=== PATIENT | male | born 1935 | race Caucasian/White ===

== ENCOUNTER 2018-06-20 18:48 | Inpatient (IN) ==
[2018-06-20] MEDS ORDERED: SODIUM CHLORIDE 0.9% 500 ML IV SCH (19:15)
[2018-06-20 19:28] LABS: Basophils # (auto) 0.01 K/uL (0-0.2); Basophils % (auto) 0.1 %; Eosinophils # (auto) 0.01 K/uL (0-0.5); Eosinophils % (auto) 0.1 %; Hemoglobin 10.2 g/dL (14.0-18.0); Immature Granulocytes # (auto) 0.03 K/uL (0.00-0.02); Immature Granulocytes % (auto) 0.3 %; Lymphocytes % (auto) 11.1 %; Mean Platelet Volume 9.6 fL (7.4-10.4); Monocytes # (auto) 0.54 K/uL (0.11-0.59); Monocytes % (auto) 5.5 %; Neutrophils # (auto) 8.21 K/uL (1.4-6.5); Neutrophils % (auto) 82.9 %; Platelet Count 257 K/uL (130-400); RDW Coefficient of Variation 14.3 % (11.5-14.5); Red Blood Count 3.57 M/uL (4.7-6.1)
--- NOTE | 2018-06-20 19:30 | XRay Report ---
SINGLE VIEW CHEST CLINICAL HISTORY: Atypical chest pain. FINDINGS: An AP, portable, upright chest radiograph is obtained. No prior studies are available for c omparison at the time of dictation. The examination is degraded by portable technique and patient rot ation. The patient is status post midline sternotomy. The heart is enlarged and there is atherosclero tic calcification of the thoracic aorta. There is prominence of the pulmonary vasculature. Emphysema and chronic interstitial thickening are noted. There is dense airspace consolidation at the left lung base and a small left pleural effusion. Small calcified granulomas are noted at the right lung base. No pneumothorax is seen. The skeletal structures are osteopenic. The bony thorax is grossly intact. Calcific tendinopathy is noted in the left shoulder. IMPRESSION: 1. There is dense airspace consolidation at the left lung base and a small left pleural effusion. Thi s is typical in appearance for pneumonia/aspiration pneumonitis. Clinical correlation will be require d and radiographic follow-up to resolution is recommended. 2. Emphysema. 3. Cardiac enlargement with prominence of the central pulmonary vessels. Correlate clinically for susannah dence of mild congestive failure. Electronically signed by: Jameel Tanner M.D. 06/20/2018 7:29 PM
[2018-06-20 19:36] LABS: INR 1.2 (0.9-1.1); Prothrombin Time 12.4 Seconds (9.0-12.0)
[2018-06-20 19:43] LABS: Alanine Aminotransferase 72 U/L (12-78); Albumin Level 3.5 gm/dl (3.4-5.0); Aspartate Aminotransferase 86 U/L (15-37); Bilirubin Direct 0.4 mg/dl (0-0.2); Blood Urea Nitrogen 53 mg/dl (7-18); Calcium 9.4 mg/dl (8.5-10.1); Carbon Dioxide 22 mmol/L (21-32); Chloride 91 mmol/L (98-107); Est GFR (African American) 41.4; Est GFR (Non-African American) 35.7; Glucose 210 mg/dl (70-99); Magnesium 2.4 mg/dl (1.8-2.4); Potassium 4.1 mmol/L (3.5-5.1); Sodium 127 mmol/L (136-145)
[2018-06-20 19:47] LABS: Albumin Globulin Ratio 1.2 (0.9-2); Alkaline Phosphatase 101 U/L (45-117); Bilirubin,Total 1.1 mg/dl (0.2-1); NT Pro B Type Natriuretic Pept 18660 pg/ml (0-1800); Phosphorus 2.5 mg/dl (2.5-4.9); Total Protein 6.5 gm/dl (6.4-8.2); Troponin I < 0.015 ng/ml (0-0.045)
[2018-06-20 20:31] LABS: Appearance Urine Clear (Clear); Blood Urine Negative (Negative); Color Urine Yellow; Glucose Urine UA Negative (Negative); Ketones Urine Trace (Negative); Leukocyte Esterase Urine 1+ (Negative); Nitrite Urine Negative (Negative); Protein Urine 2+ (Negative); Urobilinogen Urine Negative (Negative); pH Urine 5.5 (4.5-7.5)
[2018-06-20 20:39] LABS: Bilirubin Urine Negative (Negative); Ictotest Urine Negative (Negative)
[2018-06-20 20:42] LABS: Epithelial Cell Urine >30 /lpf (0-5); RBC Urine 0-4 /hpf (0-4)
[2018-06-20 20:43] LABS: Bacteria Urine 1+ (Negative)
--- NOTE | 2018-06-20 22:12 | History & Physical Report ---
Date of Service June 20, 2018 Assessment & Plan (1) Hypotension: (2) Ischemic cardiomyopathy: -Admit to telemetry -Patient presenting from home with reports of shortness of breath and hypotension -Please refer to HPI for details regarding recent medication adjustments -Suspect hypotension is likely secondary to recent addition of metoprolol in combination with furosemide -BP improved after 500 cc bolus in the ED -will continue very gentle IVF NSS at 50 cc/hour, monitor volume status very closely given severely reduced EF of 15 - 20% -Hold beta-jeff and furosemide -Resting echo -Cardiology consult -Patient appears to be end-stage heart failure, consider discussion for palliative/hospice care (3) DESMOND (acute kidney injury): (4) CKD (chronic kidney disease), stage III: -Creatinine 1.7, noted to be 1.4 on recent outpatient labs -Likely prerenal secondary to diuresis -IVF as above, monitor renal function (5) Hyponatremia: -Likely diuretic induced -Na+ 127, follow after administration of IVF (6) Elevated lipase: -Lipase 1603, ? Clinical significance -No reports of abdominal pain, nausea, vomiting -Recheck with a.m. labs (7) Abnormal chest x-ray: -CXR shows a small left pleural effusion -There is also question of a left basilar consolidation/pneumonia however given no reports of cough or sputum production, afebrile, no leukocytosis, normal procalcitonin, will not treat as pneumonia for now (8) Abnormal urinalysis: -Possible contaminant, patient denies urinary symptoms -Follow urine culture (9) DM type 2 (diabetes mellitus, type 2): -Hgb A1c 6.2 05/2018 -Metformin recently discontinued -Utilize NovoLog per protocol while hospitalized (10) DVT prophylaxis: -SQ heparin History of Present Illness Chief Complaint: Low blood pressure, shortness of breath Primary Care Provider: Jodi Dejesus DO 83-year-old male who presents the ED with low blood pressure and shortness of breath. Patient has history of severe ischemic cardiomyopathy with EF 15 to 20%. Patient has been struggling with acute CHF exacerbations since January 2018. He reports multiple hospitalizations at [facility] for this and also has undergone thoracentesis for recurrent left pleural effusion. Recently, patient established care with Dr. Siegel with [facility] for a second opinion. Previously, patient was prescribed carvedilol, spironolactone, lisinopril, and furosemide however hypotension has limited the use of these medications to the point where patient was only able to tolerate furosemide 40 mg daily. During his recent visit with Dr. Siegel, patient was found to be tachycardic and patient was started on metoprolol succinate 25 mg daily. Patient reports he takes his medication in the morning and shortly after, he reports he feels profoundly weak and short of breath. He says he takes his blood pressure and it is usually low systolically in the 80s. He then takes his furosemide later in the day and has a similar response. Today, patient had the same symptoms however were much worse. He reports he took his blood pressure and it was 68/42. EMS was then called and patient was brought to the ED for further evaluation. Patient has noted increasing lower extremity edema over the past 1 week however reports his weight has been stable. He denies orthopnea. No chest pain or palpitations. He has had episodes of lightheadedness and dizziness but denies any syncopal events. No abdominal pain, nausea, vomiting, diarrhea. He denies any fevers or chills. No cough or sputum production. He denies any urinary symptoms. In the ED, patient's initial BP was 77/47. He received NSS 500 cc bolus with marked improvement in BP and symptoms. Labs show a stable anemia with hemoglobin 10.2, Na+ 127, creatinine 1.7, proBNP 18,660, lipase 1603. CXR shows small left pleural effusion. Allergies Allergy/AdvReac Type Severity Reaction Status Date / Time No Known Allergies Allergy Verified 06/20/18 20:54 Home Medications Home Medications Medication Instructions Recorded Confirmed Type C,E,zinc,copper [id number] 1 cap PO QAM 06/20/18 06/20/18 History [Ocuvite Adult 50 Plus] Lactobac comb 6-[id number] 1 cap PO DAILY 06/20/18 06/20/18 History [Probiotic and Acidophilus] aspirin 81 mg PO QAM 06/20/18 06/20/18 History furosemide 40 mg PO DAILY 06/20/18 06/20/18 History magnesium oxide 400 mg PO QAM 06/20/18 06/20/18 History metoprolol succinate 25 mg PO QAM 06/20/18 06/20/18 History multivitamin 1 tab PO QAM 06/20/18 06/20/18 History omeprazole 20 mg PO QAM 06/20/18 06/20/18 History trazodone 50 mg PO HS 06/20/18 06/20/18 History Past Med/Surg History Medical History Prostate cancer (Chronic) LBBB (left bundle branch block) (Chronic) CAD (coronary artery disease) (Chronic) 1997-CABG X3 2000, 2003 -cardiac stent placement, further details unknown Ischemic cardiomyopathy (Chronic) CKD (chronic kidney disease), stage III (Chronic) DM type 2 (diabetes mellitus, type 2) (Chronic) CHF (congestive heart failure) (Chronic) Hypotension (Chronic) Surgical History S/P CABG x 3 (Chronic) History of cataract surgery (Chronic) Hx of cholecystectomy (Chronic) History of thoracentesis (Chronic) Family History Unknown No significant family history Noncontributory secondary to patient's advanced age Social History Preferred Language: Somali Communication Ability: Effective Dish Up Person Required: No Beliefs That Will Affect Care: None Current Living Situation: Spouse Other Information That Helps Us Care for You: No Feels Safe at Home: Yes Safety Concerns: Feels Safe At This Time Smoking Status: Never smoker Do You Dip or Chew Tobacco: No Second Hand Exposure: No Tobacco Cessation Education Requested by Patient: No Hx Alcohol Use: No Hx Substance Use: No Review of Systems Review of Systems: ROS per HPI, all other systems reviewed and negative Physical Exam Constitutional: + cachectic; no acute distress Vitals as above Eyes: PERRL, conjunctivae normal, anicteric sclerae ENMT: external ear and nose normal, oropharynx normal Respiratory: normal respiratory effort; no respiratory distress Auscultation: + crackles (Bilateral bases) Cardiovascular: Rate/Rhythm: regular rate and regular rhythm Vessels: normal peripheral pulses Extremities: + edema (+2 pitting BLE) Gastrointestinal (Abdomen): normal bowel sounds, soft, nontender, no hepatosplenomegaly Musculoskeletal: no cyanosis or clubbing, extremities motor strength 5/5 Skin: no rashes, warm and dry Neurologic: PERRL, EOMI, accommodation nl, no face palsy, no dysarthria Psychiatric: A+Ox3, euthymic affect Results & Data Vital Signs (Past 12 Hours) Vital Signs Temp Pulse Resp BP Pulse Ox 06/20/18 21:31 89 20 101/56 L 100 06/20/18 21:16 92 H 24 101/55 L 99 06/20/18 21:01 92 H 17 96/63 L 97 06/20/18 20:46 89 28 H 97/56 L 100 06/20/18 20:31 92 H 22 96/58 L 98 06/20/18 20:16 92 H 25 H 88/54 L 99 06/20/18 20:01 91 H 30 H 83/48 L 99 06/20/18 19:46 90 22 83/51 L 99 06/20/18 19:31 87 23 80/51 L 100 06/20/18 19:25 91 H 99 06/20/18 19:18 87 38 H 82/42 L 100 06/20/18 19:01 95 H 21 81/53 L 98 06/20/18 18:56 36.7 C 97 H 27 H 77/47 L 100 06/20/18 18:55 93 H 24 77/47 L 99 Laboratory Results Laboratory Last Values WBC 9.90 K/uL (4.8-10.8) 06/20/18 19:12 RBC 3.57 M/uL (4.7-6.1) L 06/20/18 19:12 Hgb 10.2 g/dL (14.0-18.0) L 06/20/18 19:12 Hct 30.0 % (42-52) L 06/20/18 19:12 MCV 84.0 fL (80-100) 06/20/18 19:12 MCH 28.6 pg (25-34) 06/20/18 19:12 MCHC 34.0 g/dL (32-36) 06/20/18 19:12 RDW Std Deviation 44.0 fL (36.4-46.3) 06/20/18 19:12 RDW Coeff of Roxanne 14.3 % (11.5-14.5) 06/20/18 19:12 Plt Count 257 K/uL (130-400) 06/20/18 19:12 MPV 9.6 fL (7.4-10.4) 06/20/18 19:12 Immature Gran % (Auto) 0.3 % 06/20/18 19:12 Neut % (Auto) 82.9 % 06/20/18 19:12 Lymph % (Auto) 11.1 % 06/20/18 19:12 Sherman % (Auto) 5.5 % 06/20/18 19:12 Eos % (Auto) 0.1 % 06/20/18 19:12 Baso % (Auto) 0.1 % 06/20/18 19:12 Immature Gran # (Auto) 0.03 K/uL (0.00-0.02) H 06/20/18 19:12 Neut # (Auto) 8.21 K/uL (1.4-6.5) H 06/20/18 19:12 Lymph # (Auto) 1.10 K/uL (1.2-3.4) L 06/20/18 19:12 Sherman # (Auto) 0.54 K/uL (0.11-0.59) 06/20/18 19:12 Eos # (Auto) 0.01 K/uL (0-0.5) 06/20/18 19:12 Baso # (Auto) 0.01 K/uL (0-0.2) 06/20/18 19:12 PT 12.4 Seconds (9.0-12.0) H 06/20/18 19:12 INR 1.2 (0.9-1.1) H 06/20/18 19:12 Sodium 127 mmol/L (136-145) L 06/20/18 19:12 Potassium 4.1 mmol/L (3.5-5.1) 06/20/18 19:12 Chloride 91 mmol/L (98-107) L 06/20/18 19:12 Carbon Dioxide 22 mmol/L (21-32) 06/20/18 19:12 Anion Gap 14.0 (3-11) H 06/20/18 19:12 BUN 53 mg/dl (7-18) H 06/20/18 19:12 Creatinine 1.71 mg/dl (0.6-1.4) H 06/20/18 19:12 Est Cr Clr Drug Dosing 27.0 ml/min 06/20/18 19:12 Est GFR ( Amer) 41.4 06/20/18 19:12 Est GFR (Non-Af Amer) 35.7 06/20/18 19:12 BUN/Creatinine Ratio 31.0 (10-20) H 06/20/18 19:12 Glucose 210 mg/dl (70-99) H 06/20/18 19:12 Osmolality 289 mOsm/kg (280-300) 06/20/18 19:12 Calcium 9.4 mg/dl (8.5-10.1) 06/20/18 19:12 Phosphorus 2.5 mg/dl (2.5-4.9) 06/20/18 19:12 Magnesium 2.4 mg/dl (1.8-2.4) 06/20/18 19:12 Total Bilirubin 1.1 mg/dl (0.2-1) H 06/20/18 19:12 Direct Bilirubin 0.4 mg/dl (0-0.2) H 06/20/18 19:12 AST 86 U/L (15-37) H 06/20/18 19:12 ALT 72 U/L (12-78) 06/20/18 19:12 Alkaline Phosphatase 101 U/L (45-117) 06/20/18 19:12 Troponin I < 0.015 ng/ml (0-0.045) 06/20/18 19:12 NT-Pro-B Natriuret Pep 94970 pg/ml (0-1800) H 06/20/18 19:12 Total Protein 6.5 gm/dl (6.4-8.2) 06/20/18 19:12 Albumin 3.5 gm/dl (3.4-5.0) 06/20/18 19:12 Globulin 3.0 gm/dl (2.5-4.0) 06/20/18 19:12 Albumin/Globulin Ratio 1.2 (0.9-2) 06/20/18 19:12 Lipase 1603 U/L (73-393) H 06/20/18 19:12 Procalcitonin 0.11 ng/ml (0-0.5) 06/20/18 19:12 Urine Color Yellow 06/20/18 20:24 Urine Appearance Clear (Clear) 06/20/18 20:24 Urine pH 5.5 (4.5-7.5) 06/20/18 20:24 Ur Specific [place] 1.020 (1.000-1.030) 06/20/18 20:24 Urine Protein 2+ (Negative) H 06/20/18 20:24 Urine Glucose (UA) Negative (Negative) 06/20/18 20:24 Urine Ketones Trace (Negative) H 06/20/18 20:24 Urine Blood Negative (Negative) 06/20/18 20:24 Urine Nitrite Negative (Negative) 06/20/18 20:24 Urine Bilirubin Negative (Negative) 06/20/18 20:24 Urine Urobilinogen Negative (Negative) 06/20/18 20:24 Ur Leukocyte Esterase 1+ (Negative) H 06/20/18 20:24 Urine RBC 0-4 /hpf (0-4) 06/20/18 20:24 Urine WBC 10-30 /hpf (0-5) H 06/20/18 20:24 Ur Epithelial Cells >30 /lpf (0-5) H 06/20/18 20:24 Urine Bacteria 1+ (Negative) H 06/20/18 20:24 Hyaline Casts 10-30 /lpf (0-5) H 06/20/18 20:24 Urine Osmolality 399 mOsm/kg (500-800) L 06/20/18 20:24 Diagnostic Findings CXR IMPRESSION: 1. There is dense airspace consolidation at the left lung base and a small left pleural effusion. This is typical in appearance for pneumonia/aspiration pneumonitis. Clinical correlation will be required and radiographic follow-up to resolution is recommended. 2. Emphysema. 3. Cardiac enlargement with prominence of the central pulmonary vessels. Correlate clinically for evidence of mild congestive failure. Code Status & VTE Plan Code Status Patient reports he is unsure of his wishes at this time and would like to discuss this with his therefore patient will be placed to full code for now. VTE Prophylaxis Plan VTE Prophylaxis will be ordered: Yes Supervising Physician Co-Signing Physician Notes Care coordinated with WARREN Luther. Agree with above note. Patient seen and examined. Please refer to her notes for full details. Vital signs reviewed. Physical exam: General exam: Alert and oriented. Not in acute distress.Cachectic CVS: S1 and S2 heard, regular rate and rhythm, no murmurs. RS: Clear to auscultation, no wheezing or crackles. ABD: Soft, bowel sounds present, nontender, no distention. CLEANER FURNITURE: Nonfocal. EXT: No edema, no erythema. Labs: Reviewed. Assessment and plan: Hypotension sob mostly from hypotension received fluid bolus in Er and BP improved Feeling better after BP improved will follow echo monitor in tele cardio consult in am Chronic systolic CHF ef 15% holding lasix and toprol xl await cardio input Other diagnosis and plan of care as per WARREN Luther. Franky herron MD.
[2018-06-20] MEDS ORDERED: SODIUM CHLORIDE 0.9% 1000ML 1,000 ML IV SCH (22:34)
[2018-06-20] MEDS ORDERED: ACETAMINOPHEN 325 MG TAB PO PRN (22:34)
[2018-06-20] MEDS ORDERED: CARBOHYDRATES FOR HYPOGLYCEMIA PO PRN (22:37)
[2018-06-20] MEDS ORDERED: GLUCOSE 10 TABS/TUBE PO PRN (22:37)
[2018-06-20] MEDS ORDERED: GLUCAGON FOR INJ 1 MG VIAL SQ PRN (22:37)
[2018-06-20] MEDS ORDERED: GLUCOSE 40% GEL 15 GM TUBE PO PRN (22:37)
[2018-06-20] MEDS ORDERED: DEXTROSE 50% 50 ML SYRINGE IV PRN (22:37)
[2018-06-20] MEDS: TRAZODONE HCL 50 MG TAB PO SCH (23:11)
--- NOTE | 2018-06-21 02:11 | Emergency Department Note ---
Entered by Yesica Borges acting as a scribe for Leonardo Hernandez MD History of Present Illness General Chief complaint: Respiratory Problems Stated complaint: SOB, EDEMA Time Seen by Provider: 06/20/18 18:59 Source: patient History of Present Illness Onset (ago): week(s) (couple) Location: chest (respiratory issues) Pain Consistency: + other (worsening) Exacerbated By: + medication Associated symptoms: + denies other symptoms (dizziness, diarrhea), + shortness of breath, + weakness and + other (low blood pressure, abdominal pain, leg swelling); no cough, no fever/chills and no nausea/vomiting The patient is a 83 year old M who presents to the Emergency Room with complaints of worsening respiratory issues starting a couple of weeks ago. The patient states that for the past couple of weeks he has been experiencing shortness of breath. He adds that he has been having issues with his home oxygen. He notes that he is currently taking Lasiks and metoprolol. He states that due to these medications his blood pressure has been low. He adds that today his blood pressure was 68/45. He states that he is currently experiencing weakness, abdominal pain, and leg swelling. He denies experiencing dizziness, fever, chills, nausea, coughing, vomiting, and diarrhea. He states that he has a history of CHF. He notes that the last time he saw his hide examiner, Dr. Siegel, was two weeks ago. Home Medications Home Medications Medication Instructions Recorded Confirmed Type C,E,zinc,copper [id number] 1 cap PO QAM 06/20/18 06/20/18 History [Ocuvite Adult 50 Plus] Lactobac comb [id number] 1 cap PO DAILY 06/20/18 06/20/18 History [Probiotic and Acidophilus] aspirin 81 mg PO QAM 06/20/18 06/20/18 History furosemide 40 mg PO DAILY 06/20/18 06/20/18 History magnesium oxide 400 mg PO QAM 06/20/18 06/20/18 History metoprolol succinate 25 mg PO QAM 06/20/18 06/20/18 History multivitamin 1 tab PO QAM 06/20/18 06/20/18 History omeprazole 20 mg PO QAM 06/20/18 06/20/18 History trazodone 50 mg PO HS 06/20/18 06/20/18 History Allergies Allergy/AdvReac Type Severity Reaction Status Date / Time No Known Allergies Allergy Verified 06/20/18 20:54 Past Med/Surg History Medical History Prostate cancer (Chronic) LBBB (left bundle branch block) (Chronic) CAD (coronary artery disease) (Chronic) 1997-CABG X3 2000, 2003 -cardiac stent placement, further details unknown Ischemic cardiomyopathy (Chronic) CKD (chronic kidney disease), stage III (Chronic) DM type 2 (diabetes mellitus, type 2) (Chronic) CHF (congestive heart failure) (Chronic) Hypotension (Chronic) Surgical History S/P CABG x 3 (Chronic) History of cataract surgery (Chronic) Hx of cholecystectomy (Chronic) History of thoracentesis (Chronic) Family History Unknown No significant family history Noncontributory secondary to patient's advanced age Social History Preferred Language: Portuguese Communication Ability: Effective Solo Musician Required: No Beliefs That Will Affect Care: None Current Living Situation: Spouse Other Information That Helps Us Care for You: No Feels Safe at Home: Yes Safety Concerns: Feels Safe At This Time Smoking Status: Never smoker Do You Dip or Chew Tobacco: No Second Hand Exposure: No Tobacco Cessation Education Requested by Patient: No Hx Alcohol Use: No Hx Substance Use: No Review of Systems See HPI for pertinent positives & negatives. and A total of 10 systems reviewed and were otherwise negative Physical Exam Vital Signs Vital Signs - 24 hr 06/20/18 18:55 06/20/18 18:56 06/20/18 19:01 Temperature 36.7 C Temperature Source Oral Sepsis Recent Fever Within 48 Hours No Sepsis New/Unexplained Change in Mental Status No Sepsis Action Taken by Nursing No Action Required Pulse Rate 93 H 97 H 95 H Pulse Rate [Apical] Pulse Rate from SpO2 Sensor 96 H 95 H Pulse Rhythm Regular Pulse Strength Normal Respiratory Rate 24 27 H 21 Respiratory Effort / Characteristics Respiratory Depth Respiratory Pattern Blood Pressure 77/47 L 77/47 L 81/53 L Blood Pressure [Right Arm] Blood Pressure Mean 57 57 62 Blood Pressure Mean [Right Arm] Blood Pressure Position Sitting Blood Pressure Position [Right Arm] Pulse Oximetry 99 100 98 Oxygen Delivery Method Room Air Room Air Room Air 06/20/18 19:18 06/20/18 19:25 06/20/18 19:31 Temperature Temperature Source Sepsis Recent Fever Within 48 Hours Sepsis New/Unexplained Change in Mental Status Sepsis Action Taken by Nursing Pulse Rate 87 91 H 87 Pulse Rate [Apical] Pulse Rate from SpO2 Sensor 87 88 Pulse Rhythm Pulse Strength Respiratory Rate 38 H 23 Respiratory Effort / Characteristics Respiratory Depth Respiratory Pattern Blood Pressure 82/42 L 80/51 L Blood Pressure [Right Arm] Blood Pressure Mean 55 60 Blood Pressure Mean [Right Arm] Blood Pressure Position Blood Pressure Position [Right Arm] Pulse Oximetry 100 99 100 Oxygen Delivery Method Room Air Room Air 06/20/18 19:46 06/20/18 20:01 06/20/18 20:16 Temperature Temperature Source Sepsis Recent Fever Within 48 Hours Sepsis New/Unexplained Change in Mental Status Sepsis Action Taken by Nursing Pulse Rate 90 91 H 92 H Pulse Rate [Apical] Pulse Rate from SpO2 Sensor 90 91 H 92 H Pulse Rhythm Pulse Strength Respiratory Rate 22 30 H 25 H Respiratory Effort / Characteristics Respiratory Depth Respiratory Pattern Blood Pressure 83/51 L 83/48 L 88/54 L Blood Pressure [Right Arm] Blood Pressure Mean 61 59 65 Blood Pressure Mean [Right Arm] Blood Pressure Position Blood Pressure Position [Right Arm] Pulse Oximetry 99 99 99 Oxygen Delivery Method 06/20/18 20:31 06/20/18 20:46 06/20/18 21:01 Temperature Temperature Source Sepsis Recent Fever Within 48 Hours Sepsis New/Unexplained Change in Mental Status Sepsis Action Taken by Nursing Pulse Rate 92 H 89 92 H Pulse Rate [Apical] Pulse Rate from SpO2 Sensor 93 H 90 91 H Pulse Rhythm Pulse Strength Respiratory Rate 22 28 H 17 Respiratory Effort / Characteristics Respiratory Depth Respiratory Pattern Blood Pressure 96/58 L 97/56 L 96/63 L Blood Pressure [Right Arm] Blood Pressure Mean 70 69 74 Blood Pressure Mean [Right Arm] Blood Pressure Position Blood Pressure Position [Right Arm] Pulse Oximetry 98 100 97 Oxygen Delivery Method 06/20/18 21:16 06/20/18 21:31 06/20/18 22:15 Temperature 36 C L Temperature Source Axillary Sepsis Recent Fever Within 48 Hours Sepsis New/Unexplained Change in Mental Status Sepsis Action Taken by Nursing Pulse Rate 92 H 89 Pulse Rate [Apical] 93 H Pulse Rate from SpO2 Sensor 92 H 89 Pulse Rhythm Pulse Strength Respiratory Rate 24 20 18 Respiratory Effort / Characteristics Non-Labored Spontaneous Respiratory Depth Normal Respiratory Pattern Regular Blood Pressure 101/55 L 101/56 L Blood Pressure [Right Arm] 92/53 L Blood Pressure Mean 70 71 Blood Pressure Mean [Right Arm] 66 Blood Pressure Position Blood Pressure Position [Right Arm] Pulse Oximetry 99 100 100 Oxygen Delivery Method Room Air 06/21/18 03:32 Temperature 36.5 C Temperature Source Oral Sepsis Recent Fever Within 48 Hours Sepsis New/Unexplained Change in Mental Status Sepsis Action Taken by Nursing Pulse Rate Pulse Rate [Apical] 87 Pulse Rate from SpO2 Sensor Pulse Rhythm Pulse Strength Respiratory Rate 18 Respiratory Effort / Characteristics Respiratory Depth Respiratory Pattern Blood Pressure Blood Pressure [Right Arm] 99/64 L Blood Pressure Mean Blood Pressure Mean [Right Arm] 75 Blood Pressure Position Blood Pressure Position [Right Arm] Lying Pulse Oximetry 98 Oxygen Delivery Method Room Air GENERAL: Awake, alert, fatigued appearing, cachectic HENT: Normocephalic, atraumatic. TM's normal. Oropharynx with dry mucous membranes and otherwise unremarkable. EYES: PERRL. EOMI. Normal conjunctiva. Sclera non-icteric. NECK: Supple. No nuchal rigidity. FROM. No JVD or bruit. RESPIRATORY: Diminished breath at bases otherwise clear CARDIAC: RRR. No murmur. ABDOMEN: Soft, non distended. No tenderness to palpation. No rebound or guarding. No masses. RECTAL: Deferred. MUSCULOSKELETAL: Unremarkable. No edema. No discoloration. Gross motor strength symmetric. NEURO: Normal sensorium. No gross motor or sensory deficits. SKIN: No rash or jaundice noted. LYMPH: No adenopathy Course 1899: The patient was evaluated in room B4. A complete history and physical exam was performed. 1938: A review of the patient's [facility] cardiology visit on 06/11 found a history of the patient having an SD in 1987, triple vessel CABG in , and coronary stents placed in 2000 an 2003. 2046: [facility] He will evaluate the patient for further management. Consultations Consultation #1: I reviewed the [facility]'s [facility] He will evaluate the patient for further management. Time: 20:47 Administered Medications Sodium Chloride (Nss 1000ml) 1,000 mls @ 50 mls/hr IV .Q20H DANIELLE Stop: 07/20/18 22:33 Last Admin: 06/20/18 22:57 Dose: 50 mls/hr Documented by: [id number] Trazodone HCl (Desyrel) 50 mg PO HS DANIELLE Stop: 07/21/18 20:59 Last Admin: 06/20/18 23:11 Dose: 50 mg Documented by: [id number] Discontinued Medications Sodium Chloride (Nss) 500 mls @ 999 mls/hr IV .Q31M DANIELLE Stop: 06/20/18 19:45 Last Infusion: 06/20/18 20:32 Dose: 0 mls/hr Documented by: [id number] Infusion: 06/20/18 19:44 Dose: 999 mls/hr Documented by: [id number] Infusion: 06/20/18 19:24 Dose: 0 mls/hr Documented by: [id number] Admin: 06/20/18 19:19 Dose: 999 mls/hr Documented by: [id number] Medical Decision Making Medical Records Attestation: I reviewed the patient's medical records. Home Medications Current Medication List: was personally reviewed by me Laboratory Data Attestation: I reviewed the patient's lab results. Result diagrams: 06/20/18 19:12 06/20/18 19:12 Lab Results 06/20/18 06/20/18 06/20/18 Range/Units 19:12 19:12 19:12 WBC 9.90 (4.8-10.8) K/uL RBC 3.57 L (4.7-6.1) M/uL Hgb 10.2 L (14.0-18.0) g/dL Hct 30.0 L (42-52) % MCV 84.0 (80-100) fL MCH 28.6 (25-34) pg MCHC 34.0 (32-36) g/dL RDW Std Deviation 44.0 (36.4-46.3) fL RDW Coeff of Roxanne 14.3 (11.5-14.5) % Plt Count 257 (130-400) K/uL MPV 9.6 (7.4-10.4) fL Immature Gran % (Auto) 0.3 % Neut % (Auto) 82.9 % Lymph % (Auto) 11.1 % [place] % (Auto) 5.5 % Eos % (Auto) 0.1 % Baso % (Auto) 0.1 % Immature Gran # (Auto) 0.03 H (0.00-0.02) K/uL Neut # (Auto) 8.21 H (1.4-6.5) K/uL Lymph # (Auto) 1.10 L (1.2-3.4) K/uL [place] # (Auto) 0.54 (0.11-0.59) K/uL Eos # (Auto) 0.01 (0-0.5) K/uL Baso # (Auto) 0.01 (0-0.2) K/uL PT 12.4 H (9.0-12.0) Seconds INR 1.2 H (0.9-1.1) Sodium 127 L (136-145) mmol/L Potassium 4.1 (3.5-5.1) mmol/L Chloride 91 L (98-107) mmol/L Carbon Dioxide 22 (21-32) mmol/L Anion Gap 14.0 H (3-11) BUN 53 H (7-18) mg/dl Creatinine 1.71 H (0.6-1.4) mg/dl Est Cr Clr Drug Dosing 27.0 ml/min Est GFR ( Amer) 41.4 Est GFR (Non-Af Amer) 35.7 BUN/Creatinine Ratio 31.0 H (10-20) Glucose 210 H (70-99) mg/dl POC Glucose (70-99) Osmolality (280-300) mOsm/kg Calcium 9.4 (8.5-10.1) mg/dl Phosphorus 2.5 (2.5-4.9) mg/dl Magnesium 2.4 (1.8-2.4) mg/dl Total Bilirubin 1.1 H (0.2-1) mg/dl Direct Bilirubin 0.4 H (0-0.2) mg/dl AST 86 H (15-37) U/L ALT 72 (12-78) U/L Alkaline Phosphatase 101 (45-117) U/L Troponin I < 0.015 (0-0.045) ng/ml NT-Pro-B Natriuret Pep 87762 H (0-1800) pg/ml Total Protein 6.5 (6.4-8.2) gm/dl Albumin 3.5 (3.4-5.0) gm/dl Globulin 3.0 (2.5-4.0) gm/dl Albumin/Globulin Ratio 1.2 (0.9-2) Lipase 1603 H (73-393) U/L Procalcitonin (0-0.5) ng/ml Urine Color Urine Appearance (Clear) Urine pH (4.5-7.5) Ur Specific [place] (1.000-1.030) Urine Protein (Negative) Urine Glucose (UA) (Negative) Urine Ketones (Negative) Urine Blood (Negative) Urine Nitrite (Negative) Urine Bilirubin (Negative) Urine Urobilinogen (Negative) Ur Leukocyte Esterase (Negative) Urine RBC (0-4) /hpf Urine WBC (0-5) /hpf Ur Epithelial Cells (0-5) /lpf Urine Bacteria (Negative) Hyaline Casts (0-5) /lpf Urine Osmolality (500-800) mOsm/kg 06/20/18 06/20/18 06/20/18 Range/Units 19:12 19:12 20:24 WBC (4.8-10.8) K/uL RBC (4.7-6.1) M/uL Hgb (14.0-18.0) g/dL Hct (42-52) % MCV (80-100) fL MCH (25-34) pg MCHC (32-36) g/dL RDW Std Deviation (36.4-46.3) fL RDW Coeff of Roxanne (11.5-14.5) % Plt Count (130-400) K/uL MPV (7.4-10.4) fL Immature Gran % (Auto) % Neut % (Auto) % Lymph % (Auto) % [place] % (Auto) % Eos % (Auto) % Baso % (Auto) % Immature Gran # (Auto) (0.00-0.02) K/uL Neut # (Auto) (1.4-6.5) K/uL Lymph # (Auto) (1.2-3.4) K/uL [place] # (Auto) (0.11-0.59) K/uL Eos # (Auto) (0-0.5) K/uL Baso # (Auto) (0-0.2) K/uL PT (9.0-12.0) Seconds INR (0.9-1.1) Sodium (136-145) mmol/L Potassium (3.5-5.1) mmol/L Chloride (98-107) mmol/L Carbon Dioxide (21-32) mmol/L Anion Gap (3-11) BUN (7-18) mg/dl Creatinine (0.6-1.4) mg/dl Est Cr Clr Drug Dosing ml/min Est GFR ( Amer) Est GFR (Non-Af Amer) BUN/Creatinine Ratio (10-20) Glucose (70-99) mg/dl POC Glucose (70-99) Osmolality 289 (280-300) mOsm/kg Calcium (8.5-10.1) mg/dl Phosphorus (2.5-4.9) mg/dl Magnesium (1.8-2.4) mg/dl Total Bilirubin (0.2-1) mg/dl Direct Bilirubin (0-0.2) mg/dl AST (15-37) U/L ALT (12-78) U/L Alkaline Phosphatase (45-117) U/L Troponin I (0-0.045) ng/ml NT-Pro-B Natriuret Pep (0-1800) pg/ml Total Protein (6.4-8.2) gm/dl Albumin (3.4-5.0) gm/dl Globulin (2.5-4.0) gm/dl Albumin/Globulin Ratio (0.9-2) Lipase (73-393) U/L Procalcitonin 0.11 (0-0.5) ng/ml Urine Color Yellow Urine Appearance Clear (Clear) Urine pH 5.5 (4.5-7.5) Ur Specific [place] 1.020 (1.000-1.030) Urine Protein 2+ H (Negative) Urine Glucose (UA) Negative (Negative) Urine Ketones Trace H (Negative) Urine Blood Negative (Negative) Urine Nitrite Negative (Negative) Urine Bilirubin Negative (Negative) Urine Urobilinogen Negative (Negative) Ur Leukocyte Esterase 1+ H (Negative) Urine RBC 0-4 (0-4) /hpf Urine WBC 10-30 H (0-5) /hpf Ur Epithelial Cells >30 H (0-5) /lpf Urine Bacteria 1+ H (Negative) Hyaline Casts 10-30 H (0-5) /lpf Urine Osmolality (500-800) mOsm/kg 06/20/18 06/20/18 Range/Units 20:24 22:49 WBC (4.8-10.8) K/uL RBC (4.7-6.1) M/uL Hgb (14.0-18.0) g/dL Hct (42-52) % MCV (80-100) fL MCH (25-34) pg MCHC (32-36) g/dL RDW Std Deviation (36.4-46.3) fL RDW Coeff of Roxanne (11.5-14.5) % Plt Count (130-400) K/uL MPV (7.4-10.4) fL Immature Gran % (Auto) % Neut % (Auto) % Lymph % (Auto) % [place] % (Auto) % Eos % (Auto) % Baso % (Auto) % Immature Gran # (Auto) (0.00-0.02) K/uL Neut # (Auto) (1.4-6.5) K/uL Lymph # (Auto) (1.2-3.4) K/uL [place] # (Auto) (0.11-0.59) K/uL Eos # (Auto) (0-0.5) K/uL Baso # (Auto) (0-0.2) K/uL PT (9.0-12.0) Seconds INR (0.9-1.1) Sodium (136-145) mmol/L Potassium (3.5-5.1) mmol/L Chloride (98-107) mmol/L Carbon Dioxide (21-32) mmol/L Anion Gap (3-11) BUN (7-18) mg/dl Creatinine (0.6-1.4) mg/dl Est Cr Clr Drug Dosing ml/min Est GFR ( Amer) Est GFR (Non-Af Amer) BUN/Creatinine Ratio (10-20) Glucose (70-99) mg/dl POC Glucose 153 H (70-99) Osmolality (280-300) mOsm/kg Calcium (8.5-10.1) mg/dl Phosphorus (2.5-4.9) mg/dl Magnesium (1.8-2.4) mg/dl Total Bilirubin (0.2-1) mg/dl Direct Bilirubin (0-0.2) mg/dl AST (15-37) U/L ALT (12-78) U/L Alkaline Phosphatase (45-117) U/L Troponin I (0-0.045) ng/ml NT-Pro-B Natriuret Pep (0-1800) pg/ml Total Protein (6.4-8.2) gm/dl Albumin (3.4-5.0) gm/dl Globulin (2.5-4.0) gm/dl Albumin/Globulin Ratio (0.9-2) Lipase (73-393) U/L Procalcitonin (0-0.5) ng/ml Urine Color Urine Appearance (Clear) Urine pH (4.5-7.5) Ur Specific [place] (1.000-1.030) Urine Protein (Negative) Urine Glucose (UA) (Negative) Urine Ketones (Negative) Urine Blood (Negative) Urine Nitrite (Negative) Urine Bilirubin (Negative) Urine Urobilinogen (Negative) Ur Leukocyte Esterase (Negative) Urine RBC (0-4) /hpf Urine WBC (0-5) /hpf Ur Epithelial Cells (0-5) /lpf Urine Bacteria (Negative) Hyaline Casts (0-5) /lpf Urine Osmolality 399 L (500-800) mOsm/kg Imaging Data Radiologist's Impression: Radiology results as stated below per my review and the radiologist's interpretation: SINGLE VIEW CHEST CLINICAL HISTORY: Atypical chest pain. FINDINGS: An AP, portable, upright chest radiograph is obtained. No prior studies are available for comparison at the time of dictation. The examination is degraded by portable technique and patient rotation. The patient is status p ost midline sternotomy. The heart is enlarged and there is atherosclerotic calcification of the thoracic aorta. There is prominence of the pulmonary vasculature. Emphysema and chronic interstitial thickening are noted. There is dense airspace consolidation at the left lung base and a small left pleural effusion. Small calcified granulomas are noted at the right lung base. No pneumothorax is seen. The skeletal structures are osteopenic. The bony thorax is grossly intact. Calcific tendinopathy is noted in the left shoulder. IMPRESSION: 1. There is dense airspace consolidation at the left lung base and a small left pleural effusion. This is typical in appearance for pneumonia/aspiration pneum onitis. Clinical correlation will be required and radiographic follow-up to resolution is recommended. 2. Emphysema. 3. Cardiac enlargement with prominence of the central pulmonary vessels. Correlate clinically for evidence of mild congestive failure. Electronically signed by: Jameel Tanner M.D. 06/20/2018 7:29 PM ECG Data Attestation: I personally reviewed and interpreted this ECG as follows: Indication: SOB/dyspnea Rate (beats per minute): 96 Rhythm: normal sinus Findings: + LBBB; no acute ischemic change Comparison ECG Date: from (06/11/18) Change: no significant change Blood Pressure Blood Pressure Findings: Low blood pressure Blood Pressure Disposition: further management by hospitalist ROBERTA Narrative The patient is a pleasant 83-year-old gentleman with a past medical history of end-stage CHF, CAD status post CABG who presents emergency department with hypotension and episode of shortness of breath prior to arrival per [facility]. Reports he had been following at [facility] for his CHF for which he remembers a percentage of 35% for his heart function. However, he recently began to see Dr. Siegel, [facility] cardiology. On arrival the patient is cachectic appearing and fatigued but no acute distress, afebrile hypotension 70s/40s but mentating normally. The patient appears clinically dry. He has diminished breath sounds at the bases bilaterally and is otherwise clear. EKG demonstrates left bundle branch block which is similar to prior EKG and [facility] system. No Sgarbossa criteria. Chest x-ray demonstrates prominent pulmonary vasculature and otherwise with left basilar opacification/pleural effusion which seems consistent with the patient's report of recurrent effusions that required drainage. WBC within normal limits. H/H 10.2/30.0 without prior values for comparison. Platelets within normal limits. Chemistry without acidosis. Sodium is 127 with a glucose of 200. Creatinine 1.7 without prior values for comparison. BUN/creatinine> 20 suggestive of prerenal component. LFTs with mildly elevated AST at 86 and total bilirubin 1.1 with direct bilirubin of 0.4, nonspecific. Lipase 1600 of unclear significance given that the patient has no symptoms to suggest pancreatitis. Troponin negative. BNP 18K, without prior values for comparison. Given the patient appears clinically dry and cachectic, likely reflects the patient's underlying severe cardiomyopathy. UA pending. Patient's blood pressure improved after gentle hydration. However, given the patient's acute onset of symptoms with associated hypotension reasonable to admit the patient for further management. Case was discussed with Dr. Gomez, [facility] hospitalist, who will evaluate the patient for admission. Impression & Plan Dehydration, Hypotension, Hyponatremia Discharge Plan Visit Data *Final* Discharge Date/Time: 06/20/18 22:01 Chief Complaint: Respiratory Problems Stated Complaint: SOB, EDEMA ED Provider: Leonardo Hernandez Discharge Problem: Dehydration, Hypotension, Hyponatremia Patient Disposition: Admitted As Inpatient Discharge Instructions Interventions: ED Discharge Assessment Last Done: 06/20/18 22:01 The scribe's documentation has been prepared under my direction and personally reviewed by me in its entirety. I confirm that the note above accurately reflects all work, treatment, procedures, and medical decision making performed by me.
[2018-06-21 06:47] LABS: Hematocrit (blood only) 29.6 % (42-52); Hemoglobin 9.7 g/dL (14.0-18.0); Mean Corpuscular Hgb Conc 32.8 g/dL (32-36); Mean Corpuscular Volume 85.5 fL (80-100); Mean Platelet Volume 9.5 fL (7.4-10.4); Platelet Count 189 K/uL (130-400); RDW Coefficient of Variation 14.5 % (11.5-14.5); RDW Standard Deviation 45.1 fL (36.4-46.3); Red Blood Count 3.46 M/uL (4.7-6.1); White Blood Count 6.36 K/uL (4.8-10.8)
[2018-06-21 07:18] LABS: BUN Creatinine Ratio 35.4 (10-20); Calcium 8.3 mg/dl (8.5-10.1); Creatinine Clr Calc Pharmacy 34.8 ml/min; Est GFR (African American) 57.1; Est GFR (Non-African American) 49.3; Potassium 3.4 mmol/L (3.5-5.1)
[2018-06-21] MEDS: MULTIVITAMIN TAB PO SCH (08:18)
[2018-06-21] MEDS: MAGNESIUM OXIDE 400 MG TAB PO SCH (08:19)
[2018-06-21] MEDS: ASPIRIN 81 MG ECTAB PO SCH (08:19)
[2018-06-21] MEDS: HEPARIN SOD 5,000 UNIT/0.5 ML VIAL SQ SCH ×2 (08:19→19:50)
[2018-06-21] MEDS: LACTOBACILLUS ACIDOPHILUS (FLORANEX) TAB PO SCH (08:19)
[2018-06-21] MEDS: INSULIN ASPART 100 UNITS/ML 3 ML PEN SC SCH ×4 (08:19→20:47)
[2018-06-21] MEDS: PANTOprazole 40 MG TAB PO SCH (08:19)
[2018-06-21] MEDS ORDERED: CEROVITE ADV FORMULA TAB PO SCH (09:00)
[2018-06-21] MEDS ORDERED: POTASSIUM CHLORIDE 20 MEQ TABCR PO ONE (12:15)
--- NOTE | 2018-06-21 13:53 | XRay Report ---
XR chest 1V portable CLINICAL HISTORY: SOB/CHF COMPARISON STUDY: Chest radiograph June 20, 2018. FINDINGS: There are median sternotomy wires and mediastinal surgical clips. There is no pneumothorax. Small bilateral pleural effusions are unchanged. Mild pleural edema is unchanged. The basilar opacit y is slightly improved. IMPRESSION: 1. No significant change in pulmonary edema and small bilateral pleural effusions. 2. Persistent, but slightly improved, left basilar opacity. Electronically signed by: Philippe Martin M.D. 06/21/2018 1:52 PM
--- NOTE | 2018-06-21 14:23 | Hospitalist Progress Note ---
Date of Service June 21, 2018 Assessment & Plan (1) Hypotension: Persistent hypotension last few days, Recently at medication adjusted, Patient reports of feeling dizzy and lightheaded while standing up, No evidence of sepsis, or infection, volume status difficult to assess as patient is very cachectic, but has pedal edema, distended abdomen suggestive of ascites Beta-jeff, Lasix been discontinued, Was given IV fluids, discontinued secondary to respiratory distress and concern for CHF exacerbation-systolic/severely reduced ejection fraction of 20% Continue monitoring telemetry Will order for orthostatic vitals Cardiology input requested Present on Admission?: Yes (2) Ischemic cardiomyopathy: - Baseline severe ischemic cardiomyopathy with EF of 15 to 20% - beta-jeff and furosemide discontinued secondary to hypotension -Resting echo ordered -Cardiology consult requested Family reports progressive repeat decline in functional status, diminished appetite/loss of weight since beginning of this year -Patient appears to be end-stage heart failure, consider discussion for palliative/hospice care (3) DESMOND (acute kidney injury): Acute renal failure, baseline chronic kidney disease stage III Creatinine 1.7 increased from baseline 1.4 Was on Lasix, discontinued Gentle IV hydration was ordered discontinued for concern of respiratory distress/decompensated CHF with systolic (4) CKD (chronic kidney disease), stage III: -Creatinine 1.7, noted to be 1.4 on recent outpatient labs -Likely prerenal secondary to diuresis IV fluid discontinued for concern for acute decompensated CHF Continue to monitor PRP (5) Hyponatremia: -Likely diuretic induced -Follow PRP (6) Dysphagia: Family reports patient has been complaining of difficulty in swallowing pills, food getting stuck, even having choking spell while drinking water Speech swallow evaluation requested Nursing order to crush pills,/diet change to moist/soft aspiration precaution (7) Elevated lipase: -Lipase 1603, -> improved today -No reports of abdominal pain, nausea, vomiting -Diet advanced (8) Abnormal chest x-ray: -CXR shows a small left pleural effusion -There is also question of a left basilar consolidation/pneumonia however given no reports of cough or sputum production, afebrile, no leukocytosis, normal procalcitonin, will not treat as pneumonia for now If the chest x-ray shows worsening bilateral pulmonary congestion suggestive of acute decompensated CHF with systolic dysfunction IV Lasix is not ordered as patient is hypotensive at baseline Ordered for oxygen supplement Continue to monitor in telemetry Cardiology consulted (9) Abnormal urinalysis: -Possible contaminant, patient denies urinary symptoms -Follow urine culture (10) DM type 2 (diabetes mellitus, type 2): -Hgb A1c 6.2 05/2018 -Metformin recently discontinued -Utilize NovoLog per protocol while hospitalized (11) DVT prophylaxis: -SQ heparin CODE STATUS: Full code Needs to be readdressed given underlying severe ischemic cardiomyopathy/advanced age, poor prognosis Disposition: Lives at home with , was using walker and cane Lately activity has been limited secondary to dizzy spells shortness of breath, able to walk only 4-5 steps with walker, PT OT evaluation requested Social service consult for discharge planning Subjective Patient complains of shortness of breath, worsening of orthopnea, diffuse Rales noted on chest auscultation IV fluid discontinued, Remains hypotensive persistently, SBP 80s Denies of any chest heaviness Patient reports of feeling dizzy lightheaded for the last 2 to 3 weeks every time he would stand up, poor energy lack of appetite, significant dyspnea on exertion with minimum activity Patient's and son present at bedside Physical Exam Constitutional: + cachectic; no acute distress Eyes: PERRL, conjunctivae normal, anicteric sclerae ENMT: external ear and nose normal, oropharynx normal Respiratory: + respiratory distress and + labored breathing Auscultation: + crackles (Bilateral bases) Cardiovascular: Rate/Rhythm: regular rate and regular rhythm Vessels: normal peripheral pulses Extremities: + edema (+2 pitting BLE) Gastrointestinal (Abdomen): Inspection/Auscultation: + abdomen distended Percussion/Palpation: abdomen soft; abdomen nontender Musculoskeletal: no cyanosis or clubbing, extremities motor strength 5/5 Skin: no rashes, warm and dry Neurologic: PERRL, EOMI, accommodation nl, no face palsy, no dysarthria Psychiatric: A+Ox3, euthymic affect Results & Data Vital Signs (Past 12 Hours) Vital Signs Temp Pulse Pulse Resp BP Pulse Ox 06/21/18 13:15 100 06/21/18 12:38 36.5 C 96 H 18 89/62 L 100 06/21/18 08:00 92 H 06/21/18 07:10 36.5 C 92 H 20 89/59 L 98 06/21/18 03:32 36.5 C 87 18 99/64 L 98 (1) DM type 2 (diabetes mellitus, type 2) Diabetes mellitus shelter insulin use: unspecified shelter insulin use status Diabetes mellitus complication status: with kidney complications Diabetes mellitus complication detail: with chronic kidney disease Chronic kidney disease stage: stage 3 (moderate) Qualified Code(s): E11.22 - Type 2 diabetes mellitus with diabetic chronic kidney disease; N18.3 - Chronic kidney disease, stage 3 (moderate) (2) Hypotension Hypotension type: idiopathic hypotension Qualified Code(s): I95.0 - Idiopathic hypotension (3) Dysphagia Dysphagia type: unspecified Qualified Code(s): R13.10 - Dysphagia, unspecif ied
[2018-06-21] MEDS ORDERED: SODIUM CHLORIDE 0.65% NA SOLN 45 ML (OCEAN) ONE (17:22)
--- NOTE | 2018-06-21 17:44 | Cardiology Consultation ---
Date of Consultation June 21, 2018 Assessment & Plan (1) Acute on chronic HFrEF (heart failure with reduced ejection fraction): (2) Ischemic cardiomyopathy: (3) LBBB (left bundle branch block): (4) Severe mitral regurgitation: (5) Hypotension: Echocardiogram performed today reveals severe left ventricular systolic function with regional wall motion abnormalities consistent with his history of ischemic cardiomyopathy. Severe mitral regurgitation is present due to restriction of excursion of the posterior mitral valve leaflet from inferior/lateral myocardial scar. The patient describes having been admitted to [place] for heart failure in February, 2 times in April, and down to this institution today. Based on his description as well as cardiology notes obtained from his previous providers it sounds as if he had been well compensated for a long time despite his cardiac status until his recent decline since about 2017 per his son. The patient has had ongoing issues of inability to tolerate his medications including beta-jeff diuretic and KIM inhibitor due to significant hypotension. I had hoped to add low-dose metoprolol because he was found to be in sinus tachycardia with a rate of 110 bpm during his recent outpatient visit with me. But he has not tolerated this. At this time, we will continue to hold diuretic and beta-jeff today. Add knee-high compression stockings to help with his mild ankle and pedal edema. We will add low-dose midodrine to help with his blood pressure. This is not ideal given his LV systolic dysfunction, with the low blood pressure has been ongoing issue and he has felt very poorly for the last month. As I had d iscussed with him when I met him last month, he may very well have reached a point where he has an end-stage heart failure condition. We discussed the possible benefits of cardiac resynchronization therapy given his left bundle branch block. But I am not optimistic that this therapy would improve his activity tolerance at this point because his septal wall motion looks more like scar the dyssynchrony on echo, and with this tachycardia he would not get the benefit of cardiac recent conization therapy. Ivabradine may help control the tachycardia with lowering his blood pressure, but may be prohibitively expensive. The tachycardia is likely a compensatory measure to help maintain cardiac output setting such low stroke volume. Will continue to follow. Agree with SQ heparin for DVT prophylaxis. History of Present Illness Attending Physician: Mignon Spears MD History of Present Illness Patric Jamison is an 83 year old male seen in cardiology consultation per the request of WARREN Luther for evaluation of shortness of breath, tachycardia, and hypertension. The patient has been noticing progressive swelling in his feet and ankles. He describes generalized weakness. Yesterday he was short of breath with minimal activity, and about an hour after taking his furosemide and metoprolol he took his blood pressure at home and found that he was very hypotensive with systolic blood pressure in the range of about 70 mmHg. He subsequently presented to the hospital. His initial blood pressure upon arrival yesterday and 06/20/2018 1855 was 77/47. This is improved to a most recent reading of 95/63. Sinus tachycardia is noted with heart rate in the range of 106 bpm. At present, he feels better than when he came yesterday. His furosemide and metoprolol placed on hold and he received a course of IV fluids which is since been stopped. The patient recently transferred his cardiology care from [place] having seen me as a new patient on 06/11/2018. Patient has previously followed with Dr. Ulloa of cardiology in [place], as well as Dr Brumfield of [facility]. The patient has a history of ischemic heart disease with initial myocardial infarction having taken place in 1997 at which time he describes having had CABG x3 in [place]. He subsequently had coronary stents placed in 2000 in 2003, the anatomical details of which are unavailable. History is otherwise notable for prostate carcinoma diagnosed in 1998 for which he had radiation therapy in 2003, and a cholecystectomy that took place in either 2013 or 2015 as the patient states it was in 2013 but his records described 2015. Allergies Allergy/AdvReac Type Severity Reaction Status Date / Time No Known Allergies Allergy Verified 06/20/18 20:54 Home Medications Home Medications Medication Instructions Recorded Confirmed Type C,E,zinc,copper [id number] 1 cap PO QAM 06/20/18 06/20/18 History [Ocuvite Adult 50 Plus] Lactobac comb 5-[id number]-zphicreatl 1 cap PO DAILY 06/20/18 06/20/18 History [Probiotic and Acidophilus] aspirin 81 mg PO QAM 06/20/18 06/20/18 History furosemide 40 mg PO DAILY 06/20/18 06/20/18 History magnesium oxide 400 mg PO QAM 06/20/18 06/20/18 History metoprolol succinate 25 mg PO QAM 06/20/18 06/20/18 History multivitamin 1 tab PO QAM 06/20/18 06/20/18 History omeprazole 20 mg PO QAM 06/20/18 06/20/18 History trazodone 50 mg PO HS 06/20/18 06/20/18 History Patient History Medical History Prostate cancer (Chronic) LBBB (left bundle branch block) (Chronic) CAD (coronary artery disease) (Chronic) 1998-CABG X3 2000, 2003 -cardiac stent placement, further details unknown Ischemic cardiomyopathy (Chronic) CKD (chronic kidney disease), stage III (Chronic) DM type 2 (diabetes mellitus, type 2) (Chronic) CHF (congestive heart failure) (Chronic) Hypotension (Chronic) Surgical History S/P CABG x 3 (Chronic) History of cataract surgery (Chronic) Hx of cholecystectomy (Chronic) History of thoracentesis (Chronic) Family History Unknown No significant family history Noncontributory secondary to patient's advanced age Social History Preferred Language: Irish Communication Ability: Effective Software Configuration Specialist Required: No Beliefs That Will Affect Care: None marital status: Current Living Situation: Spouse Other Information That Helps Us Care for You: No Feels Safe at Home: Yes Safety Concerns: Feels Safe At This Time Smoking Status: Never smoker Do You Dip or Chew Tobacco: No Second Hand Exposure: No Tobacco Cessation Education Requested by Patient: No Hx Alcohol Use: No Hx Substance Use: No Physical Exam Constitutional: + ill appearing and + cachectic (Significant muscle wasting of the upper and lower extremities) Respiratory: Auscultation: + diminished lung sounds (Decreased breath sounds the bases bilaterally); no crackles, no rales and no rhonchi Cardiovascular: Rate/Rhythm: + tachycardic Heart Sounds: + murmur (II/ systolic murmur) Vessels: + JVD Extremities: + edema (1+ ankle and pedal edema bilaterally) Skin: no rashes, warm and dry Neurologic: No focal deficits, conversant Results & Data Vital Signs (Past 12 Hours) Vital Signs Temp Pulse Pulse Resp BP Pulse Ox Pulse Ox 06/21/18 15:56 36.8 C 106 H 18 95/63 L 98 06/21/18 14:54 100 H 06/21/18 14:23 97 06/21/18 13:15 100 06/21/18 12:38 36.5 C 96 H 18 89/62 L 100 06/21/18 08:00 92 H 06/21/18 07:10 36.5 C 92 H 20 89/59 L 98 Pulse Ox 06/21/18 15:56 06/21/18 14:54 06/21/18 14:23 97 06/21/18 13:15 06/21/18 12:38 06/21/18 08:00 06/21/18 07:10 Laboratory Results Cardiac Enzymes 06/20/18 Range/Units 19:12 AST 86 H (15-37) U/L Troponin I < 0.015 (0-0.045) ng/ml Coagulation 06/20/18 Range/Units 19:12 PT 12.4 H (9.0-12.0) Seconds CBC 06/20/18 06/21/18 Range/Units 19:12 06:03 WBC 9.90 6.36 (4.8-10.8) K/uL RBC 3.57 L 3.46 L (4.7-6.1) M/uL Hgb 10.2 L 9.7 L (14.0-18.0) g/dL Hct 30.0 L 29.6 L (42-52) % Plt Count 257 189 (130-400) K/uL Neut # (Auto) 8.21 H (1.4-6.5) K/uL Lymph # (Auto) 1.10 L (1.2-3.4) K/uL [place] # (Auto) 0.54 (0.11-0.59) K/uL Eos # (Auto) 0.01 (0-0.5) K/uL Baso # (Auto) 0.01 (0-0.2) K/uL Comprehensive Metabolic Panel 06/20/18 06/21/18 Range/Units 19:12 06:03 Sodium 127 L 132 L (136-145) mmol/L Potassium 4.1 3.4 L D (3.5-5.1) mmol/L Chloride 91 L 96 L (98-107) mmol/L Carbon Dioxide 22 27 (21-32) mmol/L BUN 53 H 46 H (7-18) mg/dl Creatinine 1.71 H 1.31 D (0.6-1.4) mg/dl Glucose 210 H 130 H (70-99) mg/dl Calcium 9.4 8.3 L (8.5-10.1) mg/dl Direct Bilirubin 0.4 H (0-0.2) mg/dl AST 86 H (15-37) U/L ALT 72 (12-78) U/L Alkaline Phosphatase 101 (45-117) U/L Total Protein 6.5 (6.4-8.2) gm/dl Albumin 3.5 (3.4-5.0) gm/dl Intake and Output 06/21/18 06/21/18 06/21/18 06:59 14:59 22:59 Intake Total 1410 / 1410 Output Total 450 / 450 125 / 125 Balance -450 / 50.00 1285 / 1285 Intake: IV 715 / 715 Nss 1000ML 1,000 ml @ 50 mls/hr 715 / 715 IV .Q20H [facility] Rx#:[id number] Oral 695 / 695 Output: Urine 450 / 450 125 / 125 Other: Other Intake Source Sips # Unmeasured Voids 1 1 Weight 59.6 kg Diagnostic Findings EKG performed today 06/21/2018 revealed sinus rhythm 80 bpm first-degree AV block, left bundle branch block and resultant repolarization abnormalities. Echocardiogram performed today reviewed independently by the undersigned: Echocardiogram is technically adequate for the referral indication. Findings are consistent with history of ischemic cardiomyopathy. There is diffuse hypokinesis to akinesis with areas of myocardial thinning consistent with scar. Left ventricular systolic function is severely reduced. Ejection Fraction = 20-25%. The right ventricular systolic function is reduced as assessed by tricuspid annular plane systolic excursion (TAPSE) (TAPSE <1.6 cm). The mitral valve excursion is restricted to the presence of inferior/lateral myocardial infarction with resultant mild coaptation and severe mitral regurgitation. There is mild tricuspid regurgitation. Moderate pulmonary hypertension is present. Chest x-ray performed today revealed bilateral small pleural effusions The estimated pulmonary artery systolic pressure is 59 mmHg assuming a right atrial pressure of 15 mmHg. Small left pleural effusion. Small right pleural effusion. Medications Administered Current Inpatient Medications Acetaminophen (Tylenol) 650 mg PO Q4H PRN PRN Reason: Pain or Fever Stop: 07/20/18 22:33 Aspirin (Ecotrin Ectab) 81 mg PO QAM [facility] Stop: 07/21/18 08:59 Last Admin: 06/21/18 08:19 Dose: 81 mg Documented by: Dextrose (Dextrose 50%) 25 - 50 ml IV UD PRN; Protocol PRN Reason: Hypoglycemia Protocol Stop: 07/20/18 22:36 Glucagon (Glucagen) 1 mg SQ UD PRN; Protocol PRN Reason: Hypoglycemia Protocol Stop: 07/20/18 22:36 Glucose (Glucose 40%) 15 - 30 gm PO UD PRN; Protocol PRN Reason: Hypoglycemia Protocol Stop: 07/20/18 22:36 Glucose (Dex4 Glucose) 4 - 8 tabs PO UD PRN; Protocol PRN Reason: Hypoglycemia Protocol Stop: 07/20/18 22:36 Heparin Sodium (Porcine) (Heparin Sodium (Porcine)) 5,000 units SQ Q12 [facility] Stop: 07/21/18 08:59 Last Admin: 06/21/18 08:19 Dose: 5,000 units Documented by: Insulin Aspart (Novolog Flexpen) 0 units SC ACHS [facility] Stop: 07/21/18 07:29 Last Admin: 06/21/18 17:02 Dose: Not Given Documented by: Lactobacillus Acidophilus (Floranex) 1 tab PO DAILY [facility] Stop: 07/21/18 08:59 Last Admin: 06/21/18 08:19 Dose: 1 tab Documented by: [facility] (Mag-Ox) [facility] Stop: 07/21/18 08:59 Last Admin: 06/21/18 08:19 Dose: 400 mg Documented by: Miscellaneous (Carbohydrates For Hypoglycemia) 15 - 30 gm PO UD PRN PRN Reason: Hypoglycemia Treatment Stop: 07/20/18 22:36 Multivitamins (Multivitamin Tab) 1 tab PO QAM [facility] Stop: 07/21/18 08:59 Last Admin: 06/21/18 08:18 Dose: 1 tab Documented by: Pantoprazole Sodium (Protonix) 40 mg PO QAM [facility] Stop: 07/21/18 08:59 Last Admin: 06/21/18 08:19 Dose: 40 mg Documented by: Trazodone HCl (Desyrel) 50 mg PO HS [facility] Stop: 07/21/18 20:59 Last Admin: 06/20/18 23:11 Dose: 50 mg Documented by: (1) Hypotension Hypotension type: idiopathic hypotension Qualified Code(s): I95.0 - Idiopathic hypotension
[2018-06-21] MEDS ORDERED: LORazepam 0.5 MG TAB PO STA (19:21)
[2018-06-21] MEDS: MIDODRINE HCL 2.5 MG TAB PO SCH (19:49)
[2018-06-21] MEDS: TRAZODONE HCL 50 MG TAB PO SCH (20:46)
[2018-06-21] MEDS ORDERED: MIDODRINE HCL 2.5 MG TAB PO SCH (21:00)
[2018-06-22] MEDS: INSULIN ASPART 100 UNITS/ML 3 ML PEN SC SCH ×4 (07:54→20:38)
[2018-06-22] MEDS: HEPARIN SOD 5,000 UNIT/0.5 ML VIAL SQ SCH ×2 (07:54→20:35)
[2018-06-22] MEDS: ASPIRIN 81 MG ECTAB PO SCH (08:05)
[2018-06-22] MEDS: LACTOBACILLUS ACIDOPHILUS (FLORANEX) TAB PO SCH (08:05)
[2018-06-22] MEDS: MAGNESIUM OXIDE 400 MG TAB PO SCH (08:05)
[2018-06-22] MEDS: PANTOprazole 40 MG TAB PO SCH (08:05)
[2018-06-22] MEDS: MULTIVITAMIN TAB PO SCH (08:05)
[2018-06-22] MEDS: MIDODRINE HCL 2.5 MG TAB PO SCH ×2 (08:05→17:14)
[2018-06-22] MEDS ORDERED: [UNRECOGNIZED DRUG - OTHER] PO SCH (09:00)
[2018-06-22 09:04] LABS: BUN Creatinine Ratio 34.6 (10-20); Calcium 9.3 mg/dl (8.5-10.1); Creatinine Clr Calc Pharmacy 37.4 ml/min; Est GFR (African American) 61.7; Est GFR (Non-African American) 53.2; Magnesium 2.4 mg/dl (1.8-2.4); Potassium 4.3 mmol/L (3.5-5.1)
[2018-06-22] MEDS ORDERED: LORazepam 0.5 MG TAB PO PRN (10:19)
--- NOTE | 2018-06-22 12:08 | Cardiology Progress Note ---
Date of Service June 22, 2018 Assessment & Plan (1) Acute on chronic HFrEF (heart failure with reduced ejection fraction): (2) Ischemic cardiomyopathy: (3) LBBB (left bundle branch block): (4) Severe mitral regurgitation: (5) Hypotension: Increase midodrine to 2.5 mg 3 times daily. Ivabradine unavailable in the hospital, so after discussion with pharmacy, order was discontinued. Could consider low dose cautious digoxin, however, given renal insufficiency patient is at high risk for toxicity. Will resume Troprol at dose of 12.5 mg daily with caution. Increase midodrine to 2.5 mg TID. Hold furosemide today, however, intermediate card tender will require diuretic as BP tolerates. SQ heparin for DVT prophylasix. Subjective Chief complaint: Follow-up exertional shortness of breath, low blood pressure Subjective: Patient lying in bed comfortably. Blood pressure is trended toward improvement with most recent systolic blood pressure at 11:12 AM of 102 mmHg. Telemetry reveals sinus tachycardia in the range of 100 to 105 bpm which is mild ly improved. Patient is wearing knee-high compression stockings. Pedal ankle edema improved. Physical Exam Constitutional: + ill appearing (Chronically ill in appearance without acute distress) and + cachectic Respiratory: no respiratory distress and no labored breathing Auscultation: + diminished lung sounds (Decreased breath sounds the bases bilaterally) and + rales (Mild bibasilar Rales); no rhonchi and no wheezes Cardiovascular: Rate/Rhythm: + tachycardic Heart Sounds: + murmur (II/mineral 6 systolic murmur) Vessels: + JVD Extremities: + edema (Trace ankle edema) Skin: no rashes, warm and dry Neurologic: moves all extremities; no focal motor deficits Conversant, follows commands Results & Data Vital Signs (Past 12 Hours) Vital Signs Temp Pulse Pulse Resp BP Pulse Ox 06/22/18 11:12 36.4 C L 101 H 16 102/61 95 06/22/18 07:45 101 H 06/22/18 07:10 97 H 18 94/58 L 99 06/22/18 04:00 36.3 C L 91 H 18 100/59 L 98 Laboratory Results Comprehensive Metabolic Panel 06/22/18 Range/Units 07:41 Sodium 131 L (136-145) mmol/L Potassium 4.3 D (3.5-5.1) mmol/L Chloride 94 L (98-107) mmol/L Carbon Dioxide 26 (21-32) mmol/L BUN 43 H (7-18) mg/dl Creatinine 1.23 (0.6-1.4) mg/dl Glucose 120 H (70-99) mg/dl Calcium 9.3 (8.5-10.1) mg/dl Intake and Output 06/21/18 06/22/18 06/22/18 22:59 06:59 14:59 Intake Total 100 / 1510 Output Total 125 / 425 175 / 425 150 / 150 Balance -25 / 1085 -175 / 1085 -150 / -150 Intake: Oral 100 / 795 Output: Urine 125 / 425 175 / 425 150 / 150 Other: # Unmeasured Voids 1 Weight 59.6 kg 60.2 kg Diagnostic Findings EKG performed today 06/22/2018 reveals sinus rhythm at 96 bpm with first-degree AV block, left bundle branch block, QRS duration 166 ms. (1) Hypotension Hypotension type: idiopathic hypotension Qualified Code(s): I95.0 - Idiopathic hypotension
[2018-06-22] MEDS: METOPROLOL SUCC 25MG EXT REL TAB PO SCH (12:29)
[2018-06-22] MEDS ORDERED: MIDODRINE HCL 2.5 MG TAB PO ONE (12:30)
[2018-06-22] MEDS ORDERED: FUROSEMIDE 20 MG in SYRINGE 0 ML IV ONE (14:45)
--- NOTE | 2018-06-22 17:24 | Hospitalist Progress Note ---
Date of Service June 22, 2018 Assessment & Plan (1) Hypotension: Persistent hypotension last few days, Recently at medication adjusted, Patient reports of feeling dizzy and lightheaded while standing up, No evidence of sepsis, or infection, volume status difficult to assess as patient is very cachectic, but has pedal edema, distended abdomen suggestive of ascites Beta-jeff, Lasix been discontinued, Was given IV fluids, discontinued secondary to respiratory distress and concern for CHF exacerbation-systolic/severely reduced ejection fraction of 20% Continue monitoring telemetry Will order for orthostatic vitals Cardiology input requested (2) Ischemic cardiomyopathy: - Baseline severe ischemic cardiomyopathy with EF of 15 to 20% - beta-jeff and furosemide discontinued secondary to hypotension -Resting echo ordered -Cardiology consult requested Family reports progressive repeat decline in functional status, diminished appetite/loss of weight since beginning of this year -Patient appears to be end-stage heart failure, consider discussion for palliative/hospice care (3) DESMOND (acute kidney injury): Acute renal failure, baseline chronic kidney disease stage III Creatinine 1.7 increased from baseline 1.4 Was on Lasix, discontinued Gentle IV hydration was ordered discontinued for concern of respiratory distress/decompensated CHF with systolic (4) CKD (chronic kidney disease), stage III: -Creatinine 1.7, noted to be 1.4 on recent outpatient labs -Likely prerenal secondary to diuresis IV fluid discontinued for concern for acute decompensated CHF Continue to monitor PRP (5) Hyponatremia: -Likely diuretic induced -Follow PRP (6) Dysphagia: Family reports patient has been complaining of difficulty in swallowing pills, food getting stuck, even having choking spell while drinking water Speech swallow evaluation requested Nursing order to crush pills,/diet change to moist/soft aspiration precaution (7) Elevated lipase: -Lipase 1603, -> improved today -No reports of abdominal pain, nausea, vomiting -Diet advanced (8) Abnormal chest x-ray: -CXR shows a small left pleural effusion -There is also question of a left basilar consolidation/pneumonia however given no reports of cough or sputum production, afebrile, no leukocytosis, normal procalcitonin, will not treat as pneumonia for now If the chest x-ray shows worsening bilateral pulmonary congestion suggestive of acute decompensated CHF with systolic dysfunction IV Lasix is not ordered as patient is hypotensive at baseline Ordered for oxygen supplement Continue to monitor in telemetry Cardiology consulted (9) Abnormal urinalysis: -Possible contaminant, patient denies urinary symptoms -Follow urine culture (10) DM type 2 (diabetes mellitus, type 2): -Hgb A1c 6.2 05/2018 -Metformin recently discontinued -Utilize NovoLog per protocol while hospitalized (11) DVT prophylaxis: -SQ heparin CODE STATUS: Full code Needs to be readdressed given underlying severe ischemic cardiomyopathy/advanced age, poor prognosis Disposition: Lives at home with , was using walker and cane Lately activity has been limited secondary to dizzy spells shortness of breath, able to walk only 4-5 steps with walker, PT OT evaluation requested Social service consult for discharge planning Subjective Patient lying in bed comfortably. Blood pressure is trended toward improvement with most recent systolic blood pressure at 11:12 AM of 102 mmHg. Telemetry reveals sinus tachycardia in the range of 100 to 105 bpm which is mildly improved. Patient is wearing knee-high compression stockings. Pedal ankle edema improved. Physical Exam Constitutional: + cachectic; no acute distress Eyes: PERRL, conjunctivae normal, anicteric sclerae ENMT: external ear and nose normal, oropharynx normal Respiratory: + respiratory distress and + labored breathing Auscultation: + crackles (Bilateral bases) Cardiovascular: Rate/Rhythm: regular rate and regular rhythm Vessels: normal peripheral pulses Extremities: + edema (+2 pitting BLE) Gastrointestinal (Abdomen): normal bowel sounds, soft, nontender, no hepatosplenomegaly Inspection/Auscultation: + abdomen distended Percussion/Palpation: abdomen soft; abdomen nontender Musculoskeletal: no cyanosis or clubbing, extremities motor strength 5/5 Skin: no rashes, warm and dry Neurologic: PERRL, EOMI, accommodation nl, no face palsy, no dysarthria Psychiatric: A+Ox3, euthymic affect Results & Data Vital Signs (Past 12 Hours) Vital Signs Temp Pulse Pulse Resp BP Pulse Ox 06/22/18 16:00 103 H 06/22/18 15:06 34.8 C L 104 H 20 103/68 99 06/22/18 14:12 114/66 06/22/18 11:12 36.4 C L 101 H 16 102/61 95 06/22/18 07:45 101 H 06/22/18 07:10 97 H 18 94/58 L 99 (1) DM type 2 (diabetes mellitus, type 2) Chronic kidney disease stage: stage 3 (moderate) Diabetes mellitus complication detail: with chronic kidney disease Diabetes mellitus complication status: with kidney complications Diabetes mellitus chcf insulin use: unspecified termite treater helper insulin use status Qualified Code(s): E11.22 - Type 2 diabetes mellitus with diabetic chronic kidney disease; N18.3 - Chronic kidney disease, stage 3 (moderate) (2) Dysphagia Dysphagia type: unspecified Qualified Code(s): R13.10 - Dysphagia, unspecified (3) Hypotension Hypotension type: idiopathic hypotension Qualified Code(s): I95.0 - Idiopathic hypotension
[2018-06-22] MEDS: TRAZODONE HCL 50 MG TAB PO SCH (20:36)
[2018-06-23] MEDS: MAGNESIUM OXIDE 400 MG TAB PO SCH (08:27)
[2018-06-23] MEDS: ASPIRIN 81 MG ECTAB PO SCH (08:27)
[2018-06-23] MEDS: PANTOprazole 40 MG TAB PO SCH (08:27)
[2018-06-23] MEDS: MIDODRINE HCL 2.5 MG TAB PO SCH ×3 (08:27→16:41)
[2018-06-23] MEDS: MULTIVITAMIN TAB PO SCH (08:27)
[2018-06-23] MEDS: LACTOBACILLUS ACIDOPHILUS (FLORANEX) TAB PO SCH (08:27)
[2018-06-23] MEDS: METOPROLOL SUCC 25MG EXT REL TAB PO SCH (08:28)
[2018-06-23] MEDS: HEPARIN SOD 5,000 UNIT/0.5 ML VIAL SQ SCH ×2 (08:28→22:03)
[2018-06-23] MEDS: INSULIN ASPART 100 UNITS/ML 3 ML PEN SC SCH ×4 (08:30→22:02)
--- NOTE | 2018-06-23 12:11 | Fluoroscopy Report ---
FL video swallow HISTORY: Dysphagia TECHNIQUE: Video fluoroscopic evaluation of swallowing was performed in the AP and lateral projection s by the speech pathology staff.. FLUOROSCOPY TIME: 1.2 minutes. NUMBER OF FLUOROSCOPY IMAGES: 0 COMPARISON STUDY: None. FINDINGS: The patient swallowed thin liquids via cup and teaspoon and straw. There is no aspiration. The patient then began retching, and the study was terminated. IMPRESSION: 1. No evidence of aspiration when swallowing thin liquids. The remainder the study could not be perfo rmed. 2. Please see the speech pathologist report for detailed findings and recommendations. Electronically signed by: Yobany Navas M.D. 06/23/2018 12:10 PM
--- NOTE | 2018-06-23 12:15 | Cardiology Progress Note ---
Date of Service June 23, 2018 Assessment & Plan (1) Acute on chronic HFrEF (heart failure with reduced ejection fraction): (2) Ischemic cardiomyopathy: (3) LBBB (left bundle branch block): (4) Severe mitral regurgitation: (5) Sinus tachycardia: (6) Hypotension: Tolerating midodrine well with interval improvement in blood pressure. Tolerating low dose Toprol 12.5 mg daily. Hold furosemide today. 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 Based on his left bundle branch block morphology and ejection fraction, perhaps he would benefit from biventricular pacemaker for cardiac resynchronization therapy, however his echocardiogram reveals septal wall motion concerning for scar in that territory rather than to asynchronous contraction as well as the lateral wall. He would not be able to benefit from resynchronization therapy unless his baseline heart rate was low enough to allow pacing in the range of 70 bpm as compared to the 100 bpm range at present. The mitral regurgitation appears to be due to posterior/lateral scar with restriction of the posterior mitral valve leaflet resultant mild coaptation- perhaps this would improve with the synchronization therapy but I am not optimistic. Continue low-dose medication therapies as prescribed. He is not on statin therapy due to past intolerance. Subjective Chief complaint: Follow-up shortness of breath Subjective: Patient states he feels significantly improved having received small dose of IV furosemide yesterday. He does note occasional chest tightness that wax and wanes at rest. Blood pressure continues to trend toward improvement with most of his systolic blood pressure readings above 100 mmHg, certainly improved compared to the 70 mmHg range which the patient had reported at home. Telemetry reveals ongoing sinus tachycardia at 100 bpm, mildly improved compared to 110 bpm range noted on presentation. Physical Exam Constitutional: + ill appearing (Chronically ill in appearance, frail and cachectic, without acute distress) Respiratory: Auscultation: no crackles, no rales, no rhonchi and no wheezes Lungs clear this morning, significantly improved compared to the rales noted on reassessment yesterday afternoon. Cardiovascular: Rate/Rhythm: regular rate and + tachycardic Heart Sounds: + murmur (II/mineral 6 systolic murmur) Vessels: + JVD Extremities: no edema Gastrointestinal (Abdomen): normal bowel sounds, soft, nontender, no hepatosplenomegaly Skin: no rashes, warm and dry Neurologic: moves all extremities; no focal motor deficits Conversant, follows commands. Results & Data Vital Signs (Past 12 Hours) Vital Signs Temp Pulse Pulse Resp BP Pulse Ox 06/23/18 08:00 99 H 06/23/18 07:10 36.4 C L 98 H 22 105/64 99 06/23/18 06:29 100/61 06/23/18 04:51 36.2 C L 94 H 20 94/59 L 99 Laboratory Results Intake and Output 06/22/18 06/23/18 06/23/18 22:59 06:59 14:59 Intake Total 400 / 740 Output Total 150 / 575 275 / 575 Balance 250 / 165 -275 / 165 Intake: Oral 400 / 740 Output: Urine 150 / 575 275 / 575 Other: # Unmeasured Voids 1 Weight 60.1 kg (1) Hypotension Hypotension type: idiopathic hypotension Qualified Code(s): I95.0 - Idiopathic hypotension
--- NOTE | 2018-06-23 17:23 | Hospitalist Progress Note ---
Date of Service June 23, 2018 Assessment & Plan (1) Hypotension: BP improved after addition of Midodrine SBP In 100 on presentation was persistently hypotensive with SBP Patient reports of feeling dizzy and lightheaded while standing up, No evidence of sepsis, or infection, volume status difficult to assess as patient is very cachectic, but has pedal edema, distended abdomen suggestive of ascites appreciate input from cardiology possible due to severe cardiomyopathy (2) Ischemic cardiomyopathy: - Baseline severe ischemic cardiomyopathy with EF of 15 to 20% - -Cardiology consult appreciated Family reports progressive repeat decline in functional status, diminished appetite/loss of weight since beginning of this year -Patient appears to be end-stage heart failure, consider discussion for palliative/hospice care (3) DESMOND (acute kidney injury): Acute renal failure, baseline chronic kidney disease stage III Creatinine 1.7 increased from baseline 1.4 due to severe ischemic cardiomyopathy (4) CKD (chronic kidney disease), stage III: -Creatinine 1.7, noted to be 1.4 on recent outpatient labs -Likely prerenal secondary to diuresis IV fluid discontinued for concern for acute decompensated CHF Continue to monitor PRP (5) Hyponatremia: -Likely diuretic induced -Follow PRP (6) Dysphagia: Family reports patient has been complaining of difficulty in swallowing pills, food getting stuck, even having choking spell while drinking water Speech swallow evaluation requested Nursing order to crush pills,/diet change to moist/soft aspiration precaution (7) Elevated lipase: -Lipase 1603, -> improved today -No reports of abdominal pain, nausea, vomiting -Diet advanced (8) Abnormal chest x-ray: -CXR shows a small left pleural effusion -There is also question of a left basilar consolidation/pneumonia however given no reports of cough or sputum production, afebrile, no leukocytosis, normal procalcitonin, will not treat as pneumonia for now If the chest x-ray shows worsening bilateral pulmonary congestion suggestive of acute decompensated CHF with systolic dysfunction IV Lasix is not ordered as patient is hypotensive at baseline Ordered for oxygen supplement Continue to monitor in telemetry Cardiology consulted (9) Abnormal urinalysis: -Possible contaminant, patient denies urinary symptoms -Follow urine culture (10) DM type 2 (diabetes mellitus, type 2): -Hgb A1c 6.2 05/2018 -Metformin recently discontinued -Utilize NovoLog per protocol while hospitalized (11) DVT prophylaxis: -SQ heparin CODE STATUS: Full code Needs to be readdressed given underlying severe ischemic cardiomyopathy/advanced age, poor prognosis Disposition: Lives at home with , was using walker and cane Lately activity has been limited secondary to dizzy spells shortness of breath, able to walk only 4-5 steps with walker, PT OT evaluation requested Social service consult for discharge planning Subjective Patient states he feels significantly improved having received small dose of IV furosemide yesterday. He does note occasional chest tightness that wax and wanes at rest-possibly anxiety related Blood pressure continues to trend toward improvement with most of his systolic blood pressure readings above 100 mmHg, certainly improved compared to the 70 mmHg range which the patient had reported at home. T Physical Exam Constitutional: + cachectic; no acute distress Eyes: PERRL, conjunctivae normal, anicteric sclerae ENMT: external ear and nose normal, oropharynx normal Respiratory: + respiratory distress and + labored breathing Auscultation: + crackles (Bilateral bases) Cardiovascular: Rate/Rhythm: regular rate and regular rhythm Vessels: normal peripheral pulses Extremities: + edema (+2 pitting BLE) Gastrointestinal (Abdomen): normal bowel sounds, soft, nontender, no hepatosplenomegaly Inspection/Auscultation: + abdomen distended Percussion/Palpation: abdomen soft; abdomen nontender Musculoskeletal: no cyanosis or clubbing, extremities motor strength 5/5 Skin: no rashes, warm and dry Neurologic: PERRL, EOMI, accommodation nl, no face palsy, no dysarthria Psychiatric: A+Ox3, euthymic affect Results & Data Vital Signs (Past 12 Hours) Vital Signs Temp Pulse Pulse Resp BP Pulse Ox 06/23/18 16:00 107 H 06/23/18 15:24 36.6 C 104 H 16 100/58 L 97 06/23/18 08:00 99 H 06/23/18 07:10 36.4 C L 98 H 22 105/64 99 06/23/18 06:29 100/61 (1) DM type 2 (diabetes mellitus, type 2) Chronic kidney disease stage: stage 3 (moderate) Diabetes mellitus complication detail: with chronic kidney disease Diabetes mellitus complication status: with kidney complications Diabetes mellitus superintendent container terminal insulin use: unspecified superintendent container terminal insulin use status Qualified Code(s): E11.22 - Type 2 diabetes mellitus with diabetic chronic kidney disease; N18.3 - Chronic kidney disease, stage 3 (moderate) (2) Dysphagia Dysphagia type: unspecified Qualified Code(s): R13.10 - Dysphagia, unspecified (3) Hypotension Hypotension type: idiopathic hypotension Qualified Code(s): I95.0 - Idiopathic hypotension
[2018-06-23] MEDS: LORazepam 0.5 MG TAB PO PRN (18:21)
[2018-06-23] MEDS: TRAZODONE HCL 50 MG TAB PO SCH (22:02)
[2018-06-24 06:21] LABS: Hematocrit (blood only) 29.2 % (42-52); Hemoglobin 9.6 g/dL (14.0-18.0); Mean Corpuscular Hgb Conc 32.9 g/dL (32-36); Mean Corpuscular Volume 84.1 fL (80-100); Mean Platelet Volume 9.5 fL (7.4-10.4); Platelet Count 185 K/uL (130-400); RDW Coefficient of Variation 14.7 % (11.5-14.5); RDW Standard Deviation 45.1 fL (36.4-46.3); Red Blood Count 3.47 M/uL (4.7-6.1); White Blood Count 6.41 K/uL (4.8-10.8)
[2018-06-24 06:53] LABS: BUN Creatinine Ratio 28.8 (10-20); Calcium 8.6 mg/dl (8.5-10.1); Creatinine Clr Calc Pharmacy 33.7 ml/min; Est GFR (African American) 54.1; Est GFR (Non-African American) 46.7; Potassium 3.8 mmol/L (3.5-5.1)
[2018-06-24] MEDS: METOPROLOL SUCC 25MG EXT REL TAB PO SCH (07:32)
[2018-06-24] MEDS: MAGNESIUM OXIDE 400 MG TAB PO SCH (07:32)
[2018-06-24] MEDS: MULTIVITAMIN TAB PO SCH (07:32)
[2018-06-24] MEDS: LACTOBACILLUS ACIDOPHILUS (FLORANEX) TAB PO SCH (07:32)
[2018-06-24] MEDS: ASPIRIN 81 MG ECTAB PO SCH (07:32)
[2018-06-24] MEDS: MIDODRINE HCL 2.5 MG TAB PO SCH ×3 (07:32→18:29)
[2018-06-24] MEDS: PANTOprazole 40 MG TAB PO SCH (07:32)
[2018-06-24] MEDS: HEPARIN SOD 5,000 UNIT/0.5 ML VIAL SQ SCH ×2 (08:30→20:27)
[2018-06-24] MEDS: LORazepam 0.5 MG TAB PO PRN ×2 (08:30→20:28)
[2018-06-24] MEDS: INSULIN ASPART 100 UNITS/ML 3 ML PEN SC SCH ×4 (08:33→21:47)
[2018-06-24] MEDS ORDERED: LORazepam 0.5 MG TAB PO STA (11:57)
[2018-06-24] MEDS ORDERED: LORazepam 0.25 MG/0.5 ML VIAL IV ONE (13:48)
[2018-06-24] MEDS ORDERED: IOVERSOL 100ml IV PRN (13:50)
--- NOTE | 2018-06-24 14:10 | CT Scan Report ---
ABDOMEN AND PELVIS CT WITH IV CONTRAST CT DOSE: 297.41 mGy.cm HISTORY: Acute weight loss with cortical concern for possible malignancy significant wt loss /rule o ut malignancy TECHNIQUE: Multiaxial CT images of the abdomen and pelvis were performed following the use of intrave nous contrast. A dose lowering technique was utilized adhering to the principles of ALARA. COMPARISON STUDY: Chest radiograph 06/21/2018 FINDINGS: Moderate right and [id number] left pleural effusions with bibasilar consolidative opacities. M oderately motion degraded exam. No pneumatosis or pneumoperitoneum identified. Imaged inferior cardia c chambers are moderately enlarged. Prior median sternotomy. Mural for fatty changes about the left v entricular apex suggest prior myocardial infarction. Coronary arterial calcifications are noted. Surgically absent gallbladder. The liver appears unremarkable. No focal hepatic mass lesion identifie d. Spleen, pancreas and adrenal glands are unremarkable. There is mild cortical thinning noted about the bilateral kidneys. Indeterminate lesion with intermediate attenuation of the inferior pole right kidney, 1.2 x 1.1 cm. Additional indeterminate lesion which is slightly hyperdense involves the super ior pole left kidney, 1.7 x 1.4 cm. There is suggestion of bilateral renal cysts which are subcentime ter in size. No definite renal or ureteral calculi identified. Moderate circumferential wall thickeni ng of the bladder with perivesicular stranding. There are 2 calculi noted about the dependent urinary bladder lumen measuring up to 9 mm. Extensive mixed plaque formation of the aorta without aneurysm. Calcified plaque at the origin of the renal arteries bilaterally likely contributes to associated diane al arterial stenosis. Dual renal arterial supply to the left kidney. Mild wall thickening about the distal esophagus. Trace abdominopelvic ascites. Colonic diverticulosis without acute diverticulitis. Normal-appearing appendix. Mild generalized body wall edema. Demineral ized appearance of the bones. No suspicious lytic or blastic bony lesions. Multilevel degenerative ch anges of the spine. Multiple subcentimeter sclerotic foci of the pelvis and hips suggest probable [place]. IMPRESSION: 1. Moderate circumferential wall thickening of the bladder with perivesicular stranding is suggestive of cystitis. Correlate with urinalysis. Additionally, there are are two large calculi noted about th e dependent urinary bladder lumen measuring up to 9 mm. 2. No renal or ureteral calculi or obstructive uropathy identified. 3. There are indeterminate bilateral renal lesions, largest of which measures 1.7 cm on the left. The se findings could be correlated with ultrasound to further evaluate. 4. Colonic diverticulosis without acute diverticulitis. 5. Bilateral pleural effusions with bibasilar consolidation. 6. Trace abdominopelvic ascites. 7. Additional findings as above. Electronically signed by: Kike Jerry M.D. 06/24/2018 2:08 PM
[2018-06-24] MEDS ORDERED: PIPERACILL/TAZOBAC CONSULT ACTIVE PRN (14:17)
[2018-06-24] MEDS ORDERED: PIPERACILLIN/TAZOBACTAM 3.375 GM in DEXTROSE 5% 100 ML IV SCH (14:30)
[2018-06-24] MEDS: POLYETHYLENE (MIRALAX) 17 GM PACK PO SCH (15:24)
[2018-06-24] MEDS: cefTRIAXone SODIUM 1,000 MG in DEXTROSE 5% 50 ML IV SCH (17:14)
--- NOTE | 2018-06-24 17:50 | Cardiology Progress Note ---
Date of Service June 24, 2018 Assessment & Plan (1) Acute on chronic HFrEF (heart failure with reduced ejection fraction): (2) Severe mitral regurgitation: (3) Sinus tachycardia: (4) LBBB (left bundle branch block): 83-year-old male with acute decompensation on chronic systolic heart failure. It is felt that he has end-stage ischemic cardiomyopathy. Medication treatment is limited due to relative hypotension. He been having difficulty swallowing pills but he was able to tolerate his low- dose metoprolol and midodrine today. Dr. andres asked me to review his EKG. There were concerns that his corrected QT interval is 500 ms, this needs to be interpreted with taking his left bundle branch block with wide QRS complex 174 ms into account as well as his gross repolarization abnormalities, I do not think he has a pathologic QT prolongation that we need to be concerned about this is really just his conduction system disease. Agree with treatment for UTI. Had discussion with daughter and spouse and patient regarding considerations of transitioning to palliative care as outpatient. They seemed preliminarily receptive the idea and will need to continue the conversation tomorrow. Subjective Chief complaint: Follow-up shortness of breath, hypertension, difficulty swallowing Subjective: Patient accompanied by his daughter and spouse. Since I had seen him yesterday, videofluoroscopic swallow study was performed with no evidence of aspiration when swallowing thin liquids however the patient began retching and study could not be completed. The speech report describes a nondiagnostic study. CT of the abdomen pelvis revealed thickening of the bladder with perivesicular stranding suggestive of cystitis. Bilateral pleural effusions noted. Physical Exam Constitutional: + ill appearing (Chronically ill in appearance) and + cachectic Respiratory: Auscultation: + diminished lung sounds (Decreased breath sounds the bases bilaterally without rales rhonchi or wheezing) Cardiovascular: Rate/Rhythm: + tachycardic Heart Sounds: + murmur (II/ systolic murmur heard best at the left apex) Extremities: no edema Gastrointestinal (Abdomen): Percussion/Palpation: abdomen nontender and no guarding Neurologic: Slightly lethargic recently had Ativan for CT Results & Data Vital Signs (Past 12 Hours) Vital Signs Temp Pulse Pulse Resp BP Pulse Ox 06/24/18 11:00 36.7 C 103 H 18 100/61 99 06/24/18 08:00 104 H 06/24/18 07:01 36.5 C 103 H 19 100/60 100
--- NOTE | 2018-06-24 19:24 | Hospitalist Progress Note ---
Date of Service June 24, 2018 Assessment & Plan (1) Hypotension: BP improved after addition of midodrine by cardiology low dose beta jeff resumed severe end stage cardiomyopathy /CHF with reduced EF recent ECHO shows moderate MR very hard to treat for hypotension -pt has minimum forward flow beta jeff added to reduce tachycardia to improved out put developing Pulm congestion due to Mitral regurgitation Given X1 dose of Lasix difficult to put to schedule Lasix due to Hypotension Cardiology input appreciated over all prognosis is very poor has been on a steady decline in past 5 months palliative care consult appropriate (2) Ischemic cardiomyopathy: - Baseline severe ischemic cardiomyopathy with EF of 15 to 20% -ECHO shows reduced EF with wall motion abnormality around RCA distribution , valvular heart disease MR/causing decompensation of CHF /pulm congestion -Cardiology consult appreciated Family reports progressive repeat decline in functional status, diminished appetite/loss of weight since beginning of this year -END -stage heart failure, consult placed for r palliative/hospice care (3) DESMOND (acute kidney injury): Acute renal failure, baseline chronic kidney disease stage III Creatinine 1.7 increased from baseline 1.4 follow PRP (4) CKD (chronic kidney disease), stage III: -Creatinine 1.7, noted to be 1.4 on recent outpatient labs -Likely prerenal secondary to diuresis IV fluid discontinued for concern for acute decompensated CHF Continue to monitor PRP (5) Hyponatremia: -Likely diuretic induced -Follow PRP (6) Dysphagia: Family reports patient has been complaining of difficulty in swallowing pills, food getting stuck, even having choking spell while drinking water Speech swallow evaluation requested appreciate input VFSS shows no overt aspiration , but pt started to retching /gagging with small amount of thin liquids study was stopped as pt could not tolerated non diagnostic study speech could not suggest diet recommendation voiced concern for loss of appetite , wt loss 35 lb in past 5 months not a candidate for EGD /colonoscopy -severe cardiomyopathy -increased risk for cardiac arrythmia /CHF /suddden cardiac during anesthesia and procedure CT abdomen pelvis : shows evidence of cystitis , bladder stone no tumor or malignancy today Speech recommends : palliative care pt should be allowed to eat any thing that he likes moist slippery diet ordered , pt ate a bite of it and started to retching diet changed to Pureed aspiration precaution over all prognosis poor Nursing order to crush pills,/diet change to moist/soft aspiration precaution (7) Elevated lipase: -Lipase 1603, -> normalized -No reports of abdominal pain, nausea, vomiting -CT abdomen /pelvis shows no acute pathology (8) Abnormal chest x-ray: -CXR shows a small left pleural effusion CT abdomen/pelvis shows bilat pleural effusion -There is also question of a left basilar consolidation/pneumonia however given no reports of cough or sputum production, afebrile, no leukocytosis, normal procalcitonin, will not treat as pneumonia for now If the chest x-ray shows worsening bilateral pulmonary congestion suggestive of acute decompensated CHF with systolic dysfunction given IV Lasix 40 mg X1 for evidence of vol overload-by cardiology ( pt was in respiratory distress , diffuse wheeze noted ) further dose of diuretics kept on hold for acute renal failure /hypotesnon (9) Prolongation of QRS complex on electrocardiography: Qtc > 500 D/w cardiology -due to Chronic LBBB -EKG qtc prolongation may not be accurate ok to utilize SSRI to anxiety managment (10) Anxiety attack: severe anxiety disorder with recurrent panic attach symptoms worsening with current medical illness per family -pt 's unable to swallow , persisted at rest SOB possibly due to underlying anxiety getting transient symptom resolved with PRN PO 0.5 mg Ativan ordered Lexapro 10 mg daily ( D.w cardiology qtc 500 in setting of LBBB-so not accurate ) psych consulted (11) Protein calorie malnutrition: Severe protein-calorie malnutrition pt presents with end stage systolic CHF. very frail and cachectic with significant muscle wasting of upper and lower extremities. Pt has had a poor appetite with minimum PO intake in past few months BMI 19.8 Dietary consulted over all prognosis remains poor (12) DM type 2 (diabetes mellitus, type 2): -Hgb A1c 6.2 05/2018 -Metformin recently discontinued -Utilize NovoLog per protocol while hospitalized (13) DVT prophylaxis: -SQ heparin CODE STATUS: d/w pt and family DNR/DNI aware of the poor prognosis Disposition: Lives at home with , was using walker and cane Lately activity has been limited secondary to dizzy spells shortness of breath, able to walk only 4-5 steps with walker, PT OT evaluation requested Social service consult for discharge planning Subjective having repeated anxiety attack got ativan 0.5mg at 8: 30 am fells he is unable to breath ( spo2 shows > 95 % in RA) VFSF yesterday shows no evidence of aspiration when swallowing thin liquid however pt began retching study could not be completed , speech describes as non diagnostic -little bit amount of thin liquid managed to penetrate showed no evidence of aspiration after D/w Pt and family CT abdomen pelvis non contrast ordered : showed thickening of Urinary bladder with perivesicular stranding suggestive of cystitis pt is very anxious worried about not able to eat not feeling well ordered 0.25 mg PO Ativan D/w Family members : /son /daughter outside the room -as minimum discussion regarding his medical illness -getting pt in panic attack Family understands the poor prognosis of end stage cardiomyopathy with valvular disease noted progressive decline since Feb 2018 ( pt was working on Jan 2018 ) understand there will not be any remedy /cure for heart failure at this stage -w iling for palliative care referral family will update pt -as he is very hard of hearing /gets severe panic attack - wants to approach as home health visiting nurse later progress to hospice at present pt's most debillating symptom is severe uncontrollable anxiety family feels his not able to swallow could be anxiety related as well ordered PRN Ativan , helps with the symptoms for few hours Psych eval requested pt is stable to be transferred to medical follor Physical Exam Constitutional: + ill appearing and + cachectic; no acute distress Eyes: PERRL, conjunctivae normal, anicteric sclerae ENMT: external ear and nose normal, oropharynx normal Respiratory: + respiratory distress and + labored breathing Auscultation: + crackles (Bilateral bases) Cardiovascular: Rate/Rhythm: regular rate and regular rhythm Vessels: normal peripheral pulses Extremities: + edema (+2 pitting BLE) Gastrointestinal (Abdomen): normal bowel sounds, soft, nontender, no hepatosplenomegaly Inspection/Auscultation: + abdomen distended Percussion/Palpation: abdomen soft; abdomen nontender Musculoskeletal: no cyanosis or clubbing, extremities motor strength 5/5 Skin: no rashes, warm and dry Neurologic: PERRL, EOMI, accommodation nl, no face palsy, no dysarthria Psychiatric: Orientation: alert and oriented x 3 Affect: + anxious affect Results & Data Vital Signs (Past 12 Hours) Vital Signs Temp Pulse Pulse Resp BP Pulse Ox 06/24/18 11:00 36.7 C 103 H 18 100/61 99 06/24/18 08:00 104 H (1) DM type 2 (diabetes mellitus, type 2) Chronic kidney disease stage: stage 3 (moderate) Diabetes mellitus complication detail: with chronic kidney disease Diabetes mellitus complication status: with kidney complications Diabetes mellitus [facility] insulin use: unspecified termite renewal inspector insulin use status Qualified Code(s): E11.22 - Type 2 diabetes mellitus with diabetic chronic kidney disease; N18.3 - Chronic kidney disease, stage 3 (moderate) (2) Dysphagia Dysphagia type: unspecified Qualified Code(s): R13.10 - Dysphagia, unspecified (3) Hypotension Hypotension type: idiopathic hypotension Qualified Code(s): I95.0 - Idiopathic hypotension (4) Protein calorie malnutrition Protein-calorie malnutrition severity: severe Qualified Code(s): E43 - Unspecified severe protein-calorie malnutrition
[2018-06-24 21:38] LABS: Appearance Urine Clear (Clear); Bacteria Urine Automated Negative (Negative); Bilirubin Urine Negative (Negative); Blood Urine Negative (Negative); Color Urine Dark Yellow; Glucose Urine UA Negative (Negative); Ketones Urine Negative (Negative); Leukocyte Esterase Urine Negative (Negative); Nitrite Urine Negative (Negative); Protein Urine Trace (Negative); Specific Gravity Urine > 1.045 (1.000-1.030); Urobilinogen Urine Negative (Negative)
[2018-06-25] MEDS: LACTOBACILLUS ACIDOPHILUS (FLORANEX) TAB PO SCH (07:51)
[2018-06-25] MEDS: POLYETHYLENE (MIRALAX) 17 GM PACK PO SCH (07:51)
[2018-06-25] MEDS: MIDODRINE HCL 2.5 MG TAB PO SCH ×3 (07:51→16:34)
[2018-06-25] MEDS: METOPROLOL SUCC 25MG EXT REL TAB PO SCH (07:51)
[2018-06-25] MEDS: PANTOprazole 40 MG TAB PO SCH (07:51)
[2018-06-25] MEDS: MAGNESIUM OXIDE 400 MG TAB PO SCH (07:51)
[2018-06-25] MEDS: ASPIRIN 81 MG ECTAB PO SCH (07:51)
[2018-06-25] MEDS: MULTIVITAMIN TAB PO SCH (07:51)
[2018-06-25] MEDS: HEPARIN SOD 5,000 UNIT/0.5 ML VIAL SQ SCH ×2 (08:21→20:16)
[2018-06-25] MEDS: INSULIN ASPART 100 UNITS/ML 3 ML PEN SC SCH ×4 (08:21→20:27)
--- NOTE | 2018-06-25 09:23 | Urology Consultation ---
Date of Consultation June 25, 2018 Assessment & Plan (1) Bladder calculi: Patient not overly receptive to my consultation today due to heightened anxiety. He reports voiding spontaneously without bother. No obstruction noted on CT. I explained to patient that he will benefit from outpatient URO follow up due to history of prostate cancer. Also for bladder stones, renal lesions on CT - he is open to this. Will coordinate. Thanks for allowing us to participate in Patric's care. Please reconsult our service if additional questions/concerns during hospitalization. Will order a psa. Otherwise agree with above (2) Renal lesion: History of Present Illness Attending Physician: Jamila Golden History of Present Illness 83 YO male with multiple health issues, admitted to the hospital for CHF exacerbation. Due to recent unexplained weight loss, CT abdomen/pelvis was completed, which demonstrates 2 large bladder stones and indeterminate bilateral renal lesions. No renal or ureteral calculi or hydronephrosis is noted. Our service was consulted for evaluation. Today, patient reports feeling anxious, otherwise well. No abdominal/flank pain. Urinating spontaneously without bother. No hematuria. No fevers/chills. No nausea/vomiting. Reports distant history of prostate cancer including ?open radical prostatectomy in - per patient this was completed in [place] by unknown urologist who is no longer practicing. Has not seen a Urologist in over 10 years. Patient somewhat poor historian, attributes this to heightened anxiety due to hospitalization, pending psych consult. Allergies Allergy/AdvReac Type Severity Reaction Status Date / Time No Known Allergies Allergy Verified 06/20/18 20:54 Home Medications Home Medications Medication Instructions Recorded Confirmed Type C,E,zinc,copper [id number] 1 cap PO QAM 06/20/18 06/20/18 History [Ocuvite Adult 50 Plus] Lactobac comb [id number] 1 cap PO DAILY 06/20/18 06/20/18 History [Probiotic and Acidophilus] aspirin 81 mg PO QAM 06/20/18 06/20/18 History furosemide 40 mg PO DAILY 06/20/18 06/20/18 History magnesium oxide 400 mg PO QAM 06/20/18 06/20/18 History metoprolol succinate 25 mg PO QAM 06/20/18 06/20/18 History multivitamin 1 tab PO QAM 05/03/19 05/03/19 History omeprazole 20 mg PO QAM 06/20/18 06/20/18 History trazodone 50 mg PO HS 06/20/18 06/20/18 History Patient History Medical History Prostate cancer (Chronic) LBBB (left bundle branch block) (Chronic) CAD (coronary artery disease) (Chronic) 1997-CABG X3 2000, 2003 -cardiac stent placement, further details unknown Ischemic cardiomyopathy (Chronic) CKD (chronic kidney disease), stage III (Chronic) DM type 2 (diabetes mellitus, type 2) (Chronic) CHF (congestive heart failure) (Chronic) Hypotension (Chronic) Surgical History S/P CABG x 3 (Chronic) History of cataract surgery (Chronic) Hx of cholecystectomy (Chronic) History of thoracentesis (Chronic) Family History Unknown No significant family history Noncontributory secondary to patient's advanced age Social History Preferred Language: Ivorian Communication Ability: Effective Smearer Required: No Beliefs That Will Affect Care: None marital status: Current Living Situation: Spouse Other Information That Helps Us Care for You: No Feels Safe at Home: Yes Safety Concerns: Feels Safe At This Time Smoking Status: Never smoker Do You Dip or Chew Tobacco: No Second Hand Exposure: No Tobacco Cessation Education Requested by Patient: No Hx Alcohol Use: No Hx Substance Use: No Review of Systems Review of Systems: Focused ROS due to patient's heightened anxiety, poor his gina. Not agreeable to questioning. Ear, Nose, Mouth, Throat: hard of hearing Gastrointestinal: no abdominal pain Genitourinary: no dysuria, no difficulty urinating, no hematuria and no flank pain Psychiatric: + anxiety Physical Exam Constitutional: no acute distress Neck: normal visual inspection Respiratory: normal respiratory effort; does not use accessory muscles Cardiovascular: Vessels: no JVD Gastrointestinal (Abdomen): Percussion/Palpation: abdomen soft; abdomen nontender Psychiatric: Orientation: alert and oriented x 3 Affect: + anxious affect Results & Data Vital Signs (Past 12 Hours) Vital Signs Temp Pulse Resp BP Pulse Ox 06/25/18 07:30 36.5 C 93 H 16 98/64 L 99 06/25/18 00:11 35.7 C L 100 H 20 95/62 L 100
[2018-06-25] MEDS: LORazepam 0.5 MG TAB PO PRN ×2 (09:41→22:15)
--- NOTE | 2018-06-25 11:45 | Psychiatric Consultation ---
Date of Consultation June 25, 2018 Impression / Recommendations Impression Pt reports anxiety, beginning around the time of he health decline in January 2018. Patient and family report multiple panic attacks daily, with times of highest anxiety being in the morning and in the evenings. He denies any significant mental health concerns which would warrant an inpatient psychiatric admission. Would suggest titration of trazodone to 100mg qHS to target anxiety and sleep. Can continue low-dose lorazepam if necessary, but would suggest trial of trazodone 12.5mg in the morning and afternoon if significant daytime anxiety is present. Certainly benzodiazepines in the elderly population come with risk of falls and respiratory depression. Use of trazodone as above is likely to target anxiety while reducing the risk of ongoing use of benzodiazepines. Reviewed QTc prolongation with attending physician prior to consultation - per primary team and cardiology consult, it is believed the prolongation is related to disease of his conduction system rather than a pathologic concern in itself. They approved of medication changes to address his anxiety. Assured that EKGs would be repeated serially for monitoring during his hospitalization and can determine if medication adjustments are affecting QTc in any pronounced way. Explained this risk to family and patient who are aware. The group felt the anxiety was significant enough that it should be treated despite associated risks. That being said, will start by increasing his home medication rather than adding additional agents to his already complicated regimen. Dr. Vicenta Dnag was directly involved in review and discussion of the patient's case and participated in medical decision making regarding treatment recommendations. Risk Factors Assessment Male: Yes : Yes Do You Have Access To A Gun?: Yes Health Problems: Yes Mental Health Diagnoses: No Substance Use Disorders: No Previous Attempt: No Family History of Suicide: No Previous Psychiatric Hospitalization: No Protective Factors Assessment : Yes Responsible for Young Children: No Employed: No Stable Relationships: Yes Supportive Family: Yes CPT Code Initial Consultation: 91243 Psych History Identifying Data 83-year-old male admitted medically due to shortness of breath and hypotension. Pt has significant ischemic cardiomyopathy with EF 15 to 20%, reported plan is for palliative care consultation. Psychiatric consultation is requested to evaluate for an anxiety disorder with reported panic attacks. Information is gathered from previous hospital documentation, the patient, his , his daughter, son, and friend - all of whom were permitted to remain in the room and provide history. Information is considered to be reliable. Chief Complaint "I think I'm going to , this anxiety makes me feel this way." History of Present Illness Patric Jamison is 83-year-old male who is admitted medically for CHF exacerbation, reporting low blood pressure and SOB in the ED. Patient's EF is 15 to 20%. Reportedly, patient symptoms have been worsening significantly since January 2018. Pt is seen on psychiatric consult service to assess for anxiety and panic attacks. The patient is seen today initially with only present. Patient was agreeable with having daughter, son, and friend present upon their arrival as well. Patient is hard of hearing but is requested to provide history as able. He states his anxiety has been ongoing, beginning in January 2018 and is believed to be associated with his physical decline. Patient states panic attacks are often presenting as shortness of breath, and episodes of chest pain. He denies specific cause for this elevated anxiety stating, "it just comes out of the woodwork." Family states the patient experiences 4-5 panic attacks per day for the past 4 months. Family relates that up until his physical decline the patient had not demonstrated any symptoms of anxiety or depression. The patient agrees with this report saying anxiety has never been a concern for him previously. Patient denies any significant changes in mood over the course of his lifetime, denying any symptoms consistent with major depressive disorder. He states his predominant concern at this time is the anxiety. Patient reports some difficulty falling asleep, but especially neonatal doctor awakening and difficulty staying asleep. Family reports he has been on trazodone 50 mg at bedtime for the past 2 weeks. Patient and family report weight loss of about 30 pounds since January, attributing this to patient's difficulty swallowing. Family states the swallowing concern is not constant, rather associated with periods of stress. They state "then the choking feeling causes him to be even more anxious." Family states they did not believe that the patient has been experiencing decreased appetite, but rather mechanical concerns with nutritional intake. Family and patient report willingness for medication changes to address his anxiety. Pt denies SI, HI, SIB, A/V hallucinations, paranoia, andreia/hypomania, other symptoms more suggestive of a bipolar presentation, and other specific psychiatric symptoms. Past Psychiatric History Previous Psych History: Family reports long history of anxiety disorder, never previously treated. Pt has no outpatient psychiatric providers at present. Current Psychiatric Diagnosis: no previous psychiatric history Outpatient Services: None presently Previous Psych Admissions: None Do You Have Access To A Gun?: Yes History of Previous Suicide Attempt: No Describe Attempts in the Past: None Past Medication Trials: 1. Trazodone - sleep; started 2 weeks prior to admission Allergies Allergy/AdvReac Type Severity Reaction Status Date / Time No Known Allergies Allergy Verified 06/20/18 20:54 Home Medications Home Medications Medication Instructions Recorded Confirmed Type C,E,zinc,copper [id number] 1 cap PO QAM 06/20/18 06/20/18 History [Ocuvite Adult 50 Plus] Lactobac comb 4-[id number] 1 cap PO DAILY 06/20/18 06/20/18 History [Probiotic and Acidophilus] aspirin 81 mg PO QAM 06/20/18 06/20/18 History furosemide 40 mg PO DAILY 06/20/18 06/20/18 History magnesium oxide 400 mg PO QAM 06/20/18 06/20/18 History metoprolol succinate 25 mg PO QAM 06/20/18 06/20/18 History multivitamin 1 tab PO QAM 06/20/18 06/20/18 History omeprazole 20 mg PO QAM 06/20/18 06/20/18 History trazodone 50 mg PO HS 06/20/18 06/20/18 History Family History History of anxiety in children Substance Abuse History None reported, never smoked, never consumed alcohol Personal History Living Arrangements: Home (with ) Highest Grade Completed: High School Graduate Employment Status: Unemployed (employed part-time up until physical decline) Beliefs That Will Affect Care: None Patient History Medical History Prostate cancer (Chronic) LBBB (left bundle branch block) (Chronic) CAD (coronary artery disease) (Chronic) 1998-CABG X3 2000, 2003 -cardiac stent placement, further details unknown Ischemic cardiomyopathy (Chronic) CKD (chronic kidney disease), stage III (Chronic) DM type 2 (diabetes mellitus, type 2) (Chronic) CHF (congestive heart failure) (Chronic) Hypotension (Chronic) Surgical History S/P CABG x 3 (Chronic) History of cataract surgery (Chronic) Hx of cholecystectomy (Chronic) History of thoracentesis (Chronic) Family History Unknown No significant family history Noncontributory secondary to patient's advanced age Social History Preferred Language: Kinyarwanda Communication Ability: Effective [employer] Required: No Beliefs That Will Affect Care: None marital status: Current Living Situation: Spouse Other Information That Helps Us Care for You: No Feels Safe at Home: Yes Safety Concerns: Feels Safe At This Time Smoking Status: Never smoker Do You Dip or Chew Tobacco: No Second Hand Exposure: No Tobacco Cessation Education Requested by Patient: No Hx Alcohol Use: No Hx Substance Use: No Physical Exam Psychiatric: Orientation: alert, oriented x 3 and cooperative (but hard of hearing, somewhat difficult to obtain information) very frail, thin-appearing male appearing to be in some distress upon initial observation - some difficulty breathing. Level of hygiene and hydration appear adequate. He is appropriately dressed for setting, wearing hospital gown. Eye Contact: + poor eye contact (limited direct eye contact - either staring forward or with eyes closed) Motor Behavior: + abnormal motor movements (slowed and cautious - observed while laying in bed) Speech: normal rate/rhythm/volume of speech Affect: + anxious affect and + blunted affect Mood: + anxious mood ("the anxiety, I feel like I'm dying") Thought Process: goal directed thought process and clear/coherent thought process Thought Content: reality based without delusions Suicidal Thoughts: denies suicidal thoughts, denies suicidal plan and denies suicidal intent Homicidal Thoughts: denies homicidal thoughts Hallucinations: no auditory hallucinations and no visual hallucinations Cognition: recent memory grossly intact, attention grossly intact and language grossly intact Estimated Intelligence: consistent with education level Insight: + fair insight Judgement: + fair judgement Vital Signs (Past 24 Hours): Last Vital Signs Temp 36.5 C 06/25/18 07:30 Pulse 93 H 06/25/18 07:30 Resp 16 06/25/18 07:30 BP 98/64 L 06/25/18 07:30 Pulse Ox 99 06/25/18 07:30 Review of Systems Constitutional: reports generalized weakness Cardiovascular: denied Respiratory: reports shortness of breath Gastrointestinal: denied, but reports patient repeatedly grabbing stomach Neurological: denied Psychiatric: denies symptoms other than stated above Total of at least 10 systems reviewed, pertinent positives as above and in HPI. Results & Data Medications Administered Aspirin (Ecotrin Ectab) 81 mg PO QAM [facility] Stop: 07/21/18 08:59 Last Admin: 06/25/18 07:51 Dose: 81 mg Documented by: [id number] Admin: 06/24/18 07:32 Dose: 81 mg Documented by: [id number] Admin: 06/23/18 08:27 Dose: 81 mg Documented by: [id number] Admin: 06/22/18 08:05 Dose: 81 mg Documented by: [id number] Admin: 06/21/18 08:19 Dose: 81 mg Documented by: [id number] Heparin Sodium (Porcine) (Heparin Sodium (Porcine)) 5,000 units SQ Q12 [facility] Stop: 07/21/18 08:59 Last Admin: 06/25/18 08:21 Dose: 5,000 units Documented by: [id number] Cosigned by: [id number] Admin: 06/24/18 20:27 Dose: 5,000 units Documented by: [id number] Cosigned by: [id number] Admin: 06/24/18 08:30 Dose: 5,000 units Documented by: [id number] Cosigned by: [id number] Admin: 06/23/18 22:03 Dose: 5,000 units Documented by: [id number] Cosigned by: [id number] Admin: 06/23/18 08:28 Dose: 5,000 units Documented by: [id number] Cosigned by: [id number] Admin: 06/22/18 20:35 Dose: 5,000 units Documented by: [id number] Cosigned by: [id number] Admin: 06/22/18 07:54 Dose: 5,000 units Documented by: [id number] Cosigned by: [id number] Admin: 06/21/18 19:50 Dose: 5,000 units Documented by: [id number] Cosigned by: [id number] Admin: 06/21/18 08:19 Dose: 5,000 units Documented by: [id number] Cosigned by: [id number] Ceftriaxone Sodium 1,000 mg/ (Dextrose) 50 mls @ 100 mls/hr IV Q24H [facility]; Protocol Stop: 06/29/18 15:59 Last Infusion: 06/24/18 18:02 Dose: 0 mls/hr Documented by: [id number] Admin: 06/24/18 17:14 Dose: 100 mls/hr Documented by: [id number] Insulin Aspart (Novolog Flexpen) 0 units SC ACHS D[facility]ELLE Stop: 07/21/18 07:29 Last Admin: 06/25/18 08:21 Dose: 1 units Documented by: [id number] Cosigned by: [id number] Admin: 06/24/18 21:47 Dose: 2 units Documented by: [id number] Cosigned by: [id number] Admin: 06/24/18 18:30 Dose: 3 units Documented by: [id number] Cosigned by: [id number] Admin: 06/24/18 13:05 Dose: Not Given Documented by: [id number] Cosigned by: [id number] Admin: 06/24/18 08:33 Dose: Not Given Documented by: [id number] Cosigned by: [id number] Admin: 06/23/18 22:02 Dose: 1 units Documented by: [id number] Cosigned by: [id number] Admin: 06/23/18 16:42 Dose: 3 units Documented by: [id number] Cosigned by: [id number] Admin: 06/23/18 12:40 Dose: 2 units Documented by: [id number] Cosigned by: [id number] Admin: 06/23/18 08:30 Dose: 1 units Documented by: [id number] Cosigned by: [id number] Admin: 06/22/18 20:38 Dose: 1 units Documented by: [id number] Cosigned by: [id number] Admin: 06/22/18 17:13 Dose: 2 units Documented by: [id number] Cosigned by: [id number] Admin: 06/22/18 12:05 Dose: 3 units Documented by: [id number] Cosigned by: [id number] Admin: 06/22/18 07:54 Dose: 3 units Documented by: [id number] Cosigned by: [id number] Admin: 06/21/18 20:47 Dose: 1 units Documented by: [id number] Cosigned by: [id number] Admin: 06/21/18 17:02 Dose: Not Given Documented by: [id number] Admin: 06/21/18 12:46 Dose: 4 units Documented by: [id number] Cosigned by: [id number] Admin: 06/21/18 08:19 Dose: 2 units Documented by: [id number] Cosigned by: [id number] Ioversol (Optiray 320 100ml) 93 ml IV ONCE PRN PRN Reason: Interaction Checking Stop: 06/28/18 13:49 Last Admin: 06/24/18 13:50 Dose: 93 ml Documented by: [id number] Lactobacillus Acidophilus (Floranex) 1 tab PO DAILY [facility] Stop: 07/21/18 08:59 Last Admin: 06/25/18 07:51 Dose: 1 tab Documented by: [id number] Admin: 06/24/18 07:32 Dose: 1 tab Documented by: [id number] Admin: 06/23/18 08:27 Dose: 1 tab Documented by: [id number] Admin: 06/22/18 08:05 Dose: 1 tab Documented by: [id number] Admin: 06/21/18 08:19 Dose: 1 tab Documented by: [id number] Lorazepam (Ativan) 0.5 mg PO Q8 PRN PRN Reason: Anxiety Stop: 07/22/18 10:18 Last Admin: 06/25/18 09:41 Dose: 0.5 mg Documented by: [id number] Admin: 06/24/18 20:28 Dose: 0.5 mg Documented by: [id number] Admin: 06/24/18 08:30 Dose: 0.5 mg Documented by: [id number] Admin: 06/23/18 18:21 Dose: 0.5 mg Documented by: [id number] Magnesium Oxide (Mag-Ox) 400 mg PO QAM [facility] Stop: 07/21/18 08:59 Last Admin: 06/25/18 07:51 Dose: 400 mg Documented by: [id number] Admin: 06/24/18 07:32 Dose: 400 mg Documented by: [id number] Admin: 06/23/18 08:27 Dose: 400 mg Documented by: [id number] Admin: 06/22/18 08:05 Dose: 400 mg Documented by: [id number] Admin: 06/21/18 08:19 Dose: 400 mg Documented by: [id number] Metoprolol Succinate (Toprol Xl) 12.5 mg PO QAM [facility] Stop: 07/22/18 12:29 Last Admin: 06/25/18 07:51 Dose: 12.5 mg Documented by: [id number] Admin: 06/24/18 07:32 Dose: 12.5 mg Documented by: [id number] Admin: 06/23/18 08:28 Dose: 12.5 mg Documented by: [id number] Admin: 06/22/18 12:29 Dose: 12.5 mg Documented by: [id number] Midodrine (Proamatine) 2.5 mg PO TID@0800,1200,1700 [facility] Stop: 07/22/18 16:59 Last Admin: 06/25/18 07:51 Dose: 2.5 mg Documented by: [id number] Admin: 06/24/18 18:29 Dose: 2.5 mg Documented by: [id number] Admin: 06/24/18 12:16 Dose: 2.5 mg Documented by: [id number] Admin: 06/24/18 07:32 Dose: 2.5 mg Documented by: [id number] Admin: 06/23/18 16:41 Dose: 2.5 mg Documented by: [id number] Admin: 06/23/18 12:39 Dose: 2.5 mg Documented by: [id number] Admin: 06/23/18 08:27 Dose: 2.5 mg Documented by: [id number] Admin: 06/22/18 17:14 Dose: 2.5 mg Documented by: [id number] Multivitamins (Multivitamin Tab) 1 tab PO QAM [facility] Stop: 07/21/18 08:59 Last Admin: 06/25/18 07:51 Dose: 1 tab Documented by: [id number] Admin: 06/24/18 07:32 Dose: 1 tab Documented by: [id number] Admin: 06/23/18 08:27 Dose: 1 tab Documented by: [id number] Admin: 06/22/18 08:05 Dose: 1 tab Documented by: [id number] Admin: 06/21/18 08:18 Dose: 1 tab Documented by: [id number] Pantoprazole Sodium (Protonix) 40 mg PO QAM [facility] Stop: 07/21/18 08:59 Last Admin: 06/25/18 07:51 Dose: 40 mg Documented by: [id number] Admin: 06/24/18 07:32 Dose: 40 mg Documented by: [id number] Admin: 06/23/18 08:27 Dose: 40 mg Documented by: [id number] Admin: 06/22/18 08:05 Dose: 40 mg Documented by: [id number] Admin: 06/21/18 08:19 Dose: 40 mg Documented by: [id number] Polyethylene Glycol (Miralax Powder Packet) 17 gm PO DAILY [facility] Stop: 07/24/18 14:14 Last Admin: 06/25/18 07:51 Dose: 17 gm Documented by: [id number] Admin: 06/24/18 15:24 Dose: 17 gm Documented by: [id number]
[2018-06-25] MEDS: ESCITALOPRAM OXALATE 10 MG TAB PO SCH (12:31)
[2018-06-25] MEDS ORDERED: LORazepam 0.25 MG/0.5 ML VIAL IV STA ×2 (14:10→16:23)
--- NOTE | 2018-06-25 14:25 | Palliative Care Consultation ---
Date of Consultation June 25, 2018 Assessment & Plan (1) Goals of care, counseling/discussion: -83 year old male with end-stage heart disease, ischemic cardiomyopathy with EF 15-20%, CKD stage III, who presented to the hospital several days ago with hypotension and weakness. Patient lives at home with his . Has been struggling with frequent hospitalizations since January 2018 with heart failure. Was going to [facility] until recently when he switched to [facility] cardiology for a second opinion. He is seen as an outpatient, and while here in the hospital, by Dr. Siegel for cardiology. His diuretics are on hold at this time for hypotension. Patient has been on a steady decline per the family since February. His weakness is increasing, increased SOB with any activity and even at rest, worsening anxiety related to the SOB. His family would like to keep him at home. Palliative care is consulted to discuss goals of care. -Met at length with patient, his Sharmin, daughter Leena, son Osvaldo, and another family member in room 404. -After discussion, family has decided that once patient is medically optimized, they would like to take him home with hospice. Goal is for comfort and for patient to not return to the hospital. -Patient is on IV abx at this time, could probably be switched to PO medication upon discharge if he is to continue. -Will order Roxanol 5mg PO/SL Q3h PRN pain or SOB. -Has lorazepam ordered for anxiety. -Case management is following and will start the process of setting up hospice. (2) Hypotension: Hypotension type: idiopathic hypotension Qualified Code(s): I95.0 - Idiopathic hypotension (3) Ischemic cardiomyopathy: (4) DESMOND (acute kidney injury): (5) Dysphagia: Dysphagia type: unspecified Qualified Code(s): R13.10 - Dysphagia, unspecified History of Present Illness Attending Physician: Jamila Golden History of Present Illness This 83 year old male with end-stage heart disease, ischemic cardiomyopathy with EF 15-20%, CKD stage III, who presented to the hospital several days ago with hypotension and weakness. Patient lives at home with his . Has been struggling with frequent hospitalizations since January 2018 with heart failure. Was going to [facility] until recently when he switched to [facility] cardiology for a second opinion. He is seen as an outpatient, and while here in the hospital, by Dr. Siegel for cardiology. His diuretics are on hold at this time for hypotension. Patient has been on a steady decline per the family since February. His weakness is increasing, increased SOB with any activity and even at rest, worsening anxiety related to the SOB. His family would like to keep him at home. Palliative care is consulted to discuss goals of care. Thank you kindly for this consult. I Will follow. Allergies Allergy/AdvReac Type Severity Reaction Status Date / Time No Known Allergies Allergy Verified 06/20/18 20:54 Home Medications Home Medications Medication Instructions Recorded Confirmed Type C,E,zinc,copper 52-[id number] 1 cap PO QAM 06/20/18 06/20/18 History [Ocuvite Adult 50 Plus] Lactobac comb 9-[id number] 1 cap PO DAILY 06/20/18 06/20/18 History [Probiotic and Acidophilus] aspirin 81 mg PO QAM 06/20/18 06/20/18 History furosemide 40 mg PO DAILY 06/20/18 06/20/18 History magnesium oxide 400 mg PO QAM 06/20/18 06/20/18 History metoprolol succinate 25 mg PO QAM 06/20/18 06/20/18 History multivitamin 1 tab PO QAM 06/20/18 06/20/18 History omeprazole 20 mg PO QAM 06/20/18 06/20/18 History trazodone 50 mg PO HS 06/20/18 06/20/18 History Patient History Medical History Prostate cancer (Chronic) LBBB (left bundle branch block) (Chronic) CAD (coronary artery disease) (Chronic) 1997-CABG X3 2000, 2003 -cardiac stent placement, further details unknown Ischemic cardiomyopathy (Chronic) CKD (chronic kidney disease), stage III (Chronic) DM type 2 (diabetes mellitus, type 2) (Chronic) CHF (congestive heart failure) (Chronic) Hypotension (Chronic) Surgical History S/P CABG x 3 (Chronic) History of cataract surgery (Chronic) Hx of cholecystectomy (Chronic) History of thoracentesis (Chronic) Family History Unknown No significant family history Noncontributory secondary to patient's advanced age Social History Preferred Language: Bolivian Communication Ability: Effective [employer] Required: No Beliefs That Will Affect Care: None marital status: Current Living Situation: Spouse Other Information That Helps Us Care for You: No Feels Safe at Home: Yes Safety Concerns: Feels Safe At This Time Smoking Status: Never smoker Do You Dip or Chew Tobacco: No Second Hand Exposure: No Tobacco Cessation Education Requested by Patient: No Hx Alcohol Use: No Hx Substance Use: No Review of Systems Constitutional: + weakness Ear, Nose, Mouth, Throat: + dysphagia Respiratory: + cough, + dyspnea and + dyspnea on exertion Cardiovascular: + edema; no chest pain Gastrointestinal: no abdominal pain and no nausea Neurologic: no confusion Psychiatric: + anxiety Physical Exam Constitutional: + ill appearing and + cachectic; no acute distress Eyes: PERRL, conjunctivae normal, anicteric sclerae ENMT: external ear and nose normal, oropharynx normal Respiratory: + labored breathing Auscultation: no rhonchi and no wheezes Cardiovascular: Rate/Rhythm: regular rate and regular rhythm Vessels: normal peripheral pulses Extremities: + edema (+2 pitting BLE) Gastrointestinal (Abdomen): Percussion/Palpation: abdomen soft; abdomen nontender Neurologic: moves all extremities Psychiatric: Orientation: oriented x 3 Affect: + anxious affect Results & Data Vital Signs (Past 12 Hours) Vital Signs Temp Pulse Resp BP Pulse Ox 06/25/18 07:30 36.5 C 93 H 16 98/64 L 99 Time Spent Midlevel 80 minutes with >50% of time spent at bedside with patient and family discussing condition, GOC, and hospice.
--- NOTE | 2018-06-25 15:06 | Hospitalist Progress Note ---
Date of Service June 25, 2018 Assessment & Plan (1) Hypotension: BP improved after addition of Midodrine - stable now Patient reports of feeling dizzy and lightheaded while standing up. No evidence of sepsis, or infection, volume status difficult to assess as patient is very cachectic, but has pedal edema, distended abdomen suggestive of ascites -Per cardiology, end-stage cardiomyopathy. Recommends palliative care -Family meeting today- after medical optimization would like to take him home with hospice. Not to return to hospital -Roxanol 5 mg/ml q 3 hours PRN -Lorazepam PRN for anxiety (2) Ischemic cardiomyopathy: Baseline severe ischemic cardiomyopathy with EF of 15 to 20% -Cardiology consult appreciated -Family reports progressive repeat decline in functional status, diminished appetite/loss of weight since beginning of this year -Patient appears to be end-stage heart failure. Palliative care consulted (3) DESMOND (acute kidney injury): Acute renal failure, baseline chronic kidney disease stage III -Creatinine 1.7 increased from baseline 1.4 due to severe ischemic cardiomyopathy (4) CKD (chronic kidney disease), stage III: -Creatinine 1.7, noted to be 1.4 on recent outpatient labs -Likely prerenal secondary to diuresis -IV fluid discontinued for concern for acute decompensated CHF -Monitor (5) Hyponatremia: -Likely diuretic induced -Follow PRP (6) Dysphagia: Family reports patient has been complaining of difficulty in swallowing pills, food getting stuck, even having choking spell while drinking water. Speech swallow done: VFSS shows no overt aspiration, but patient started to retching /gagging with small amount of thin liquids - study was stopped as pt could not tolerate it. Non diagnostic study. Speech could not suggest diet recommendation - voiced concern for loss of appetite , wt loss 35 lb in past 5 months Not a candidate for EGD /colonoscopy -severe cardiomyopathy -increased risk for cardiac arrythmia /CHF /suddden cardiac during anesthesia and procedure CT abdomen pelvis : shows evidence of cystitis , bladder stone -no tumor or malignancy. Speech recommends : palliative care Pt should be allowed to eat any thing that he likes -Pureed diet now. Pleasure feeds Aspiration precautions (7) Elevated lipase: -Lipase 1603, -> normalized -No reports of abdominal pain, nausea, vomiting -CT abdomen /pelvis shows no acute pathology (8) Abnormal chest x-ray: -CXR shows a small left pleural effusion CT abdomen/pelvis shows bilat pleural effusion -There is also question of a left basilar consolidation/pneumonia however given no reports of cough or sputum production, afebrile, no leukocytosis, normal procalcitonin, will not treat as pneumonia for now If the chest x-ray shows worsening bilateral pulmonary congestion suggestive of acute decompensated CHF with systolic dysfunction given IV Lasix 40 mg X1 for evidence of vol overload-by cardiology ( pt was in respiratory distress , diffuse wheeze noted ) -further dose of diuretics kept on hold for acute renal failure /hypotesnon (9) Abnormal urinalysis: -Possible contaminant, patient denies urinary symptoms -Urine culture- Not significant (10) DM type 2 (diabetes mellitus, type 2): -Hgb A1c 6.2 05/2018 -Metformin recently discontinued -Utilize NovoLog per protocol while hospitalized (11) DVT prophylaxis: -SQ heparin CODE STATUS: d/w pt and family DNR/DNI aware of the poor prognosis Disposition: Lives at home with , was using walker and cane Lately activity has been limited secondary to dizzy spells shortness of breath, able to walk only 4-5 steps with walker, PT OT evaluation requested Social service consult for discharge planning (12) Palliative care encounter: Multiple comorbidities as above. End-stage cardiomyopathy with hypotension at baseline Palliative medicine meeting today with familyafter medical optimization in house, would like to take her home with hospice. No hospitalization Roxanol 5 mg/ML every 3 hours as needed started Subjective Patient is comfortable, Patient is lying comfortably in his bed. Denies any complaint Physical Exam Physical Exam: Constitutional + ill appearing and + cachectic; no acute distress Eyes PERRL, conjunctivae normal, anicteric sclerae ENMT external ear and nose normal, oropharynx normal Respiratory + labored breathing Auscultation: no rhonchi and no wheezes Cardiovascular Rate/Rhythm: regular rate and regular rhythm Vessels: normal peripheral pulses Extremities: + edema (+2 pitting BLE) Gastrointestinal (Abdomen) Percussion/Palpation: abdomen soft; abdomen nontender Results & Data Vital Signs (Past 12 Hours) Vital Signs Temp Pulse Resp BP Pulse Ox 06/25/18 07:30 36.5 C 93 H 16 98/64 L 99 (1) DM type 2 (diabetes mellitus, type 2) Chronic kidney disease stage: stage 3 (moderate) Diabetes mellitus complication detail: with chronic kidney disease Diabetes mellitus complication status: with kidney complications Diabetes mellitus intermediate project manager insulin use: unspecified intermediate project manager insulin use status Qualified Code(s): E11.22 - Type 2 diabetes mellitus with diabetic chronic kidney disease; N18.3 - Chronic kidney disease, stage 3 (moderate) (2) Dysphagia Dysphagia type: unspecified Qualified Code(s): R13.10 - Dysphagia, unspecified (3) Hypotension Hypotension type: idiopathic hypotension Qualified Code(s): I95.0 - Idiopathic hypotension
[2018-06-25] MEDS ORDERED: MoRPHine SULFATE 5 MG/0.25 ML UDP PO PRN (15:37)
--- NOTE | 2018-06-25 16:16 | Cardiology Progress Note ---
Date of Service June 25, 2018 Assessment & Plan (1) Acute on chronic HFrEF (heart failure with reduced ejection fraction): End-stage ischemic cardiomyopathy with severe mitral regurgitation. Patient/family interested in proceeding with palliative care. I ordered a one-time dose of IV lorazepam to relieve his anxiety was demonstrated when I was with him at the bedside. DNR/DNI. Subjective Chief complaint: Follow-up fatigue, shortness of breath, difficulty swallowing Subjective: Patient's family took him outside in the sunshine for a brief time in the wheelchair. When he came back, he is very anxious and short of breath. He has had an oral dose of lorazepam earlier this morning. Physical Exam Constitutional: + ill appearing and + cachectic Respiratory: Auscultation: no crackles and no rales Cardiovascular: Rate/Rhythm: + tachycardic Heart Sounds: + murmur (II/ systolic murmur) Vessels: no JVD Extremities: no edema Neurologic: Fatigue, follows commands Results & Data Vital Signs (Past 12 Hours) Vital Signs Temp Pulse Resp BP Pulse Ox 06/25/18 15:22 99 06/25/18 07:30 36.5 C 93 H 16 98/64 L 99
[2018-06-25] MEDS: cefTRIAXone SODIUM 1,000 MG in DEXTROSE 5% 50 ML IV SCH (16:27)
[2018-06-26] MEDS: HEPARIN SOD 5,000 UNIT/0.5 ML VIAL SQ SCH ×2 (08:27→21:18)
[2018-06-26] MEDS: METOPROLOL SUCC 25MG EXT REL TAB PO SCH (08:28)
[2018-06-26] MEDS: POLYETHYLENE (MIRALAX) 17 GM PACK PO SCH (08:28)
[2018-06-26] MEDS: INSULIN ASPART 100 UNITS/ML 3 ML PEN SC SCH ×4 (08:28→21:17)
[2018-06-26] MEDS: ESCITALOPRAM OXALATE 10 MG TAB PO SCH (08:29)
[2018-06-26] MEDS: ASPIRIN 81 MG ECTAB PO SCH (08:29)
[2018-06-26] MEDS: MAGNESIUM OXIDE 400 MG TAB PO SCH (08:29)
[2018-06-26] MEDS: MULTIVITAMIN TAB PO SCH (08:29)
[2018-06-26] MEDS: MIDODRINE HCL 2.5 MG TAB PO SCH ×3 (08:29→18:00)
[2018-06-26] MEDS: PANTOprazole 40 MG TAB PO SCH (08:29)
[2018-06-26] MEDS: LACTOBACILLUS ACIDOPHILUS (FLORANEX) TAB PO SCH (08:29)
--- NOTE | 2018-06-26 13:31 | Palliative Care Progress Note ---
Date of Service June 26, 2018 Assessment & Plan (1) Goals of care, counseling/discussion: -Plan is for patient to go home with hospice once medically stable. -Will increase lorazepam to 0.5mg PO/SL Q4h PRN anxiety. -Continue Roxanol 5mg PO/SL Q3h PRN pain or SOB. -No family at bedside today. -Will continue to follow as needed. (2) Hypotension: (3) Ischemic cardiomyopathy: (4) DESMOND (acute kidney injury): (5) Dysphagia: Subjective Patient up to bathroom during my first visit. He is still having severe anxiety. Anxiety makes the SOB worse. Review of Systems Constitutional: + weakness Ear, Nose, Mouth, Throat: + dysphagia Respiratory: + cough, + dyspnea and + dyspnea on exertion Cardiovascular: + edema; no chest pain Psychiatric: + anxiety Physical Exam Constitutional: + ill appearing and + cachectic; no acute distress Eyes: PERRL, conjunctivae normal, anicteric sclerae ENMT: external ear and nose normal, oropharynx normal Respiratory: + labored breathing Auscultation: no rhonchi and no wheezes Cardiovascular: Rate/Rhythm: regular rate and regular rhythm Vessels: normal peripheral pulses Extremities: + edema (+2 pitting BLE) Gastrointestinal (Abdomen): Percussion/Palpation: abdomen soft; abdomen nontender Neurologic: moves all extremities Psychiatric: Orientation: oriented x 3 Affect: + anxious affect Results & Data Vital Signs (Past 12 Hours) Vital Signs Temp Pulse Resp BP Pulse Ox 06/26/18 07:21 36.3 C L 99 H 18 106/59 L 100 Time Spent Midlevel 25 minutes with >50% of time spent at bedside with patient and nursing staff discussing symptom management. (1) Hypotension Hypotension type: idiopathic hypotension Qualified Code(s): I95.0 - Idiopa thic hypotension (2) Dysphagia Dysphagia type: unspecified Qualified Code(s): R13.10 - Dysphagia, unspecified
[2018-06-26] MEDS: LORazepam 0.5 MG TAB PO PRN ×2 (14:10→19:49)
[2018-06-26] MEDS: cefTRIAXone SODIUM 1,000 MG in DEXTROSE 5% 50 ML IV SCH (15:39)
--- NOTE | 2018-06-26 16:36 | Hospitalist Progress Note ---
Date of Service June 26, 2018 Assessment & Plan (1) Hypotension: BP improved after addition of Midodrine - stable now Patient reports of feeling dizzy and lightheaded while standing up. No evidence of sepsis, or infection, volume status difficult to assess as patient is very cachectic, but has pedal edema, distended abdomen suggestive of ascites -Per cardiology, end-stage cardiomyopathy. Recommends palliative care -Family meeting on 06/25/18- after medical optimization would like to take him home with hospice. Not to return to hospital -Roxanol 5 mg/ml q 3 hours PRN -Lorazepam 0.5 mg PO/SL q 3 hours PRN for anxiety (2) Ischemic cardiomyopathy: Baseline severe ischemic cardiomyopathy with EF of 15 to 20% -Cardiology consult appreciated -Family reports progressive repeat decline in functional status, diminished appetite/loss of weight since beginning of this year -Patient appears to be end-stage heart failure. Palliative care consulted (3) DESMOND (acute kidney injury): Acute renal failure, baseline chronic kidney disease stage III -Creatinine 1.7 increased from baseline 1.4 due to severe ischemic cardiomyopathy (4) CKD (chronic kidney disease), stage III: -Creatinine 1.7, noted to be 1.4 on recent outpatient labs -Likely prerenal secondary to diuresis -IV fluid discontinued for concern for acute decompensated CHF -Monitor (5) Hyponatremia: -Likely diuretic induced -Follow PRP (6) Dysphagia: Family reports patient has been complaining of difficulty in swallowing pills, food getting stuck, even having choking spell while drinking water. Speech swallow done: VFSS shows no overt aspiration, but patient started to retching /gagging with small amount of thin liquids - study was stopped as pt could not tolerate it. Non diagnostic study. Speech could not suggest diet recommendation - voiced concern for loss of appetite , wt loss 35 lb in past 5 months Not a candidate for EGD /colonoscopy -severe cardiomyopathy -increased risk for cardiac arrythmia /CHF /suddden cardiac during anesthesia and procedure CT abdomen pelvis : shows evidence of cystitis , bladder stone -no tumor or malignancy. Speech recommends : palliative care Pt should be allowed to eat any thing that he likes -Pureed diet now. Pleasure feeds Aspiration precautions (7) Elevated lipase: -Lipase 1603, -> normalized -No reports of abdominal pain, nausea, vomiting -CT abdomen /pelvis shows no acute pathology (8) Abnormal chest x-ray: -CXR shows a small left pleural effusion CT abdomen/pelvis shows bilat pleural effusion -There is also question of a left basilar consolidation/pneumonia however given no reports of cough or sputum production, afebrile, no leukocytosis, normal procalcitonin, will not treat as pneumonia for now If the chest x-ray shows worsening bilateral pulmonary congestion suggestive of acute decompensated CHF with systolic dysfunction given IV Lasix 40 mg X1 for evidence of vol overload-by cardiology ( pt was in respiratory distress , diffuse wheeze noted ) -further dose of diuretics kept on hold for acute renal failure /hypotesnon (9) Abnormal urinalysis: -Possible contaminant, patient denies urinary symptoms -Urine culture- Not significant (10) DM type 2 (diabetes mellitus, type 2): -Hgb A1c 6.2 05/2018 -Metformin recently discontinued -Utilize NovoLog per protocol while hospitalized (11) DVT prophylaxis: -SQ heparin (12) Palliative care encounter: Multiple comorbidities as above. End-stage cardiomyopathy with hypotension at baseline Palliative medicine meeting 06/25- Family decided to go for home hospice CODE STATUS: d/w pt and family DNR/DNI aware of the poor prognosis Disposition: Home hospice in AM Called Subjective Patient says he had an anxiety attack today AM Now feeling better Denies any pain Physical Exam Physical Exam: Constitutional + ill appearing and + cachectic; no acute distress Eyes PERRL, conjunctivae normal, anicteric sclerae ENMT external ear and nose normal, oropharynx normal Respiratory + labored breathing Auscultation: no rhonchi and no wheezes Cardiovascular Rate/Rhythm: regular rate and regular rhythm Vessels: normal peripheral pulses Extremities: + edema (+2 pitting BLE) Gastrointestinal (Abdomen) Percussion/Palpation: abdomen soft; abdomen nontender Results & Data Vital Signs (Past 12 Hours) Vital Signs Temp Pulse Resp BP BP Pulse Ox 06/26/18 15:23 36.2 C L 97 H 22 160/67 H 97 06/26/18 07:21 36.3 C L 99 H 18 106/59 L 100 (1) DM type 2 (diabetes mellitus, type 2) Chronic kidney disease stage: stage 3 (moderate) Diabetes mellitus complication detail: with chronic kidney disease Diabetes mellitus complication status: with kidney complications Diabetes mellitus custodial insulin use: unspecified custodial insulin use status Qualified Code(s): E11.22 - Type 2 diabetes mellitus with diabetic chronic kidney disease; N18.3 - Chronic kidney disease, stage 3 (moderate) (2) Dysphagia Dysphagia type: unspecified Qualified Code(s): R13.10 - Dysphagia, unspecified (3) Hypotension Hypotension type: idiopathic hypotension Qualified Code(s): I95.0 - Idiopathic hypotension
[2018-06-27] MEDS: LORazepam 0.5 MG TAB PO PRN ×2 (02:27→13:51)
[2018-06-27] MEDS: INSULIN ASPART 100 UNITS/ML 3 ML PEN SC SCH ×2 (08:11→12:20)
[2018-06-27] MEDS: HEPARIN SOD 5,000 UNIT/0.5 ML VIAL SQ SCH (08:11)
[2018-06-27] MEDS: ASPIRIN 81 MG ECTAB PO SCH (08:12)
[2018-06-27] MEDS: ESCITALOPRAM OXALATE 10 MG TAB PO SCH (08:12)
[2018-06-27] MEDS: MIDODRINE HCL 2.5 MG TAB PO SCH ×2 (08:12→11:48)
[2018-06-27] MEDS: MULTIVITAMIN TAB PO SCH (08:12)
[2018-06-27] MEDS: MAGNESIUM OXIDE 400 MG TAB PO SCH (08:12)
[2018-06-27] MEDS: METOPROLOL SUCC 25MG EXT REL TAB PO SCH (08:12)
[2018-06-27] MEDS: PANTOprazole 40 MG TAB PO SCH (08:12)
[2018-06-27] MEDS: LACTOBACILLUS ACIDOPHILUS (FLORANEX) TAB PO SCH (08:12)
[2018-06-27] MEDS: POLYETHYLENE (MIRALAX) 17 GM PACK PO SCH (08:15)
--- NOTE | 2018-06-27 10:54 | Hospitalist Progress Note ---
Date of Service June 27, 2018 Assessment & Plan (1) Hypotension: SECONDARY TO END STAGE ISCHEMIC CARDIOMYOPATHY BP improved after addition of Midodrine - stable now No evidence of sepsis, or infection. -Per cardiology, end-stage cardiomyopathy. Recommended palliative care -Family meeting on 06/25/18- after medical optimization would like to take him home with hospice. Not to return to hospital. DNR/DNI -Roxanol 5 mg/ml q 3 hours PRN -Lorazepam 0.5 mg PO/SL q 3 hours PRN for anxiety -Appreciated palliative care inputs (2) Ischemic cardiomyopathy: Baseline severe ischemic cardiomyopathy with EF of 15 to 20% -Mx as above (3) Palliative care encounter: Multiple comorbidities as above. End-stage cardiomyopathy with hypotension at baseline Palliative medicine meeting 06/25- Family decided to go for home hospice (4) DESMOND (acute kidney injury): Acute renal failure, baseline chronic kidney disease stage III -Creatinine 1.7 increased from baseline 1.4 -due to severe ischemic cardiomyopathy (5) CKD (chronic kidney disease), stage III: -Creatinine 1.7, noted to be 1.4 on recent outpatient labs -Likely prerenal secondary to diuresis (6) Hyponatremia: -Likely diuretic induced (7) Dysphagia: Family reports patient has been complaining of difficulty in swallowing pills, food getting stuck, even having choking spell while drinking water. Speech swallow done: VFSS shows no overt aspiration, but patient started to retching /gagging with small amount of thin liquids - study was stopped as pt could not tolerate it. Non diagnostic study. Speech could not suggest diet recommendation - voiced concern for loss of ap petite , wt loss 35 lb in past 5 months Not a candidate for EGD /colonoscopy -severe cardiomyopathy -increased risk for cardiac arrythmia /CHF /suddden cardiac during anesthesia and procedure CT abdomen pelvis : shows evidence of cystitis , bladder stone -no tumor or malignancy. Speech recommends : palliative care Pt should be allowed to eat any thing that he likes -Pureed diet.Pleasure feeds Aspiration precautions (8) Elevated lipase: -Lipase 1603, -> normalized -No reports of abdominal pain, nausea, vomiting -CT abdomen /pelvis shows no acute pathology (9) Abnormal chest x-ray: -CXR shows a small left pleural effusion CT abdomen/pelvis shows bilat pleural effusion -There is also question of a left basilar consolidation/pneumonia however given no reports of cough or sputum production, afebrile, no leukocytosis, normal procalcitonin, will not treat as pneumonia for now -Received IV lasix -further dose of diuretics kept on hold for acute renal failure /hypotesnon (10) Abnormal urinalysis: -Possible contaminant, patient denies urinary symptoms -Urine culture- Not significant (11) DM type 2 (diabetes mellitus, type 2): -Hgb A1c 6.2 05/2018 -Metformin recently discontinued -Utilize NovoLog per protocol while hospitalized (12) DVT prophylaxis: -SQ heparin CODE STATUS: d/w pt and family DNR/DNI aware of the poor prognosis Disposition: Home hospice today Subjective Patient is feeling much better and eager to be discharged Anxiety has improved. Denies any pain and looks comfortable Physical Exam Physical Exam: Constitutional + ill appearing and + cachectic; no acute distress Eyes PERRL, conjunctivae normal, anicteric sclerae ENMT external ear and nose normal, oropharynx normal Respiratory + labored breathing Auscultation: no rhonchi and no wheezes Cardiovascular Rate/Rhythm: regular rate and regular rhythm Vessels: normal peripheral pulses Extremities: + edema (+2 pitting BLE) Gastrointestinal (Abdomen) Percussion/Palpation: abdomen soft; abdomen nontender Results & Data Vital Signs (Past 12 Hours) Vital Signs Temp Pulse Resp BP BP Pulse Ox 06/27/18 07:53 36.4 C L 82 20 93/59 L 90 06/27/18 00:00 36.6 C 93 H 20 101/67 99 (1) Hypotension Hypotension type: idiopathic hypotension Qualified Code(s): I95.0 - Idiopathic hypotension (2) Dysphagia Dysphagia type: unspecified Qualified Code(s): R13.10 - Dysphagia, unspecified (3) DM type 2 (diabetes mellitus, type 2) Diabetes mellitus intermediate manager insulin use: unspecified fci insulin use status Diabetes mellitus complication status: with kidney complications Diabetes mellitus complication detail: with chronic kidney disease Chronic kidney disease stage: stage 3 (moderate) Qualified Code(s): E11.22 - Type 2 diabetes mellitus with diabetic chronic kidney disease; N18.3 - Chronic kidney disease, stage 3 (moderate)
--- NOTE | 2018-06-27 13:44 | Palliative Care Progress Note ---
Date of Service June 27, 2018 Assessment & Plan (1) Goals of care, counseling/discussion: Patient sitting on his bedside chair, [place]. Pt expressed he is happy to go home with Hospice. All equipment has been delivered. [facility] to follow. and daughter, Leena, at the bedside. Symptoms managed with Roxanol and Ativan. All questions answered. POLST form was completed and signed by patient indicating DNR, Comfort measures only, trial abx, and no artificial nutrition/tube feeding. Transport planned for 1500. (2) Hypotension: (3) Ischemic cardiomyopathy: (4) DESMOND (acute kidney injury): (5) Dysphagia: Subjective Patient sitting on his bedside chair, [place]. Pt expressed he is happy to go home. and daughter, Leena, at the bedside. Symptoms managed with Roxanol and Ativan. All questions answered. Transport planned for 1500. Review of Systems Review of Systems: All systems reviewed & are unremarkable except as noted in HPI & below Physical Exam Physical Exam: Patient sitting on his bedside chair Constitutional: + ill appearing, + thin, + cachectic and + frail appearing Eyes: PERRL, conjunctivae normal, anicteric sclerae ENMT: external ear and nose normal, oropharynx normal Neck: trachea midline, no thyromegaly Respiratory: Auscultation: + diminished lung sounds Cardiovascular: Rate/Rhythm: regular rate and regular rhythm Heart Sounds: normal S1 and normal S2 Gastrointestinal (Abdomen): normal bowel sounds, soft, nontender, no hepatosplenomegaly Results & Data Vital Signs (Past 12 Hours) Vital Signs Temp Pulse Resp BP Pulse Ox 06/27/18 07:53 36.4 C L 82 20 93/59 L 90 Time Spent Midlevel total time spent 35 minutes with > 50% of that time spent reviewing symptoms, discharge plan, and completing a POLST form with family at the bedside. (1) Hypotension Hypotension type: idiopathic hypotension Qualified Code(s): I95.0 - Idiopathic hypotension (2) Dysphagia Dysphagia type: unspecified Qualified Code(s): R13.10 - Dysphagia, unspecified
--- NOTE | 2018-06-27 14:10 | Cardiology Progress Note ---
Date of Service June 27, 2018 Assessment & Plan (1) Acute on chronic HFrEF (heart failure with reduced ejection fraction): End-stage ischemic cardiomyopathy. Agree with plan for outpatient hospice. Family plans to take him home later today. Think it is reasonable to continue the patient's midodrine and metoprolol to keep him comfortable. Agree with Lexapro. Subjective Chief complaint: Follow-up generalized fatigue, shortness of breath Subjective: Patient seen and examined in room 404. His spouse and daughter are accompanying him. He feels well at rest and is enjoying the view of the window. Physical Exam Constitutional: + ill appearing and + cachectic; no acute distress Respiratory: Auscultation: + diminished lung sounds (Decreased breath sounds at the bases); no crackles and no rales Cardiovascular: Rate/Rhythm: + tachycardic Heart Sounds: + murmur (II/I 06 systolic murmur) Extremities: no edema Neurologic: moves all extremities and + focal motor deficit Conversant Results & Data Vital Signs (Past 12 Hours) Vital Signs Temp Pulse Pulse Resp BP BP Pulse Ox 06/27/18 13:44 36.4 C L 93 H 82 20 93/59 L 101/67 90 06/27/18 07:53 36.4 C L 82 20 93/59 L 90
--- NOTE | 2018-07-09 07:44 | Discharge Summary ---
Date of Service June 27, 2018 Admission HPI Per Admitting Provider Patric Jamison is 83-year-old male who is admitted medically for CHF exacerbation, reporting low blood pressure and SOB in the ED. Patient's EF is 15 to 20%. Reportedly, patient symptoms have been worsening significantly since January 2018. Pt is seen on psychiatric consult service to assess for anxiety and panic attacks. The patient is seen today initially with only present. Patient was agreeable with having daughter, son, and friend present upon their arrival as well. Patient is hard of hearing but is requested to provide history as able. He states his anxiety has been ongoing, beginning in January 2018 and is believed to be associated with his physical decline. Patient states panic attacks are often presenting as shortness of breath, and episodes of chest pain. He denies specific cause for this elevated anxiety stating, "it just comes out of the woodwork." Family states the patient experiences 4-5 panic attacks per day for the past 4 months. Family relates that up until his physical decline the patient had not demonstrated any symptoms of anxiety or depression. The patient agrees with this report saying anxiety has never been a concern for him previously. Patient denies any significant changes in mood over the course of his lifetime, denying any symptoms consistent with major depressive disorder. He states his predominant concern at this time is the anxiety. Patient reports some difficulty falling asleep, but especially early breastfeeding care specialist awakening and difficulty staying asleep. Family reports he has been on trazodone 50 mg at bedtime for the past 2 weeks. Patient and family report weight loss of about 30 pounds since January, attributing this to patient's difficulty swallowing. Family states the swallowing concern is not constant, rather associated with periods of stress. They state "then the choking feeling causes him to be even more anxious." Family states they did not believe that the patient has been experiencing decreased appetite, but rather mechanical concerns with nutritional intake. Family and patient report willingness for medication changes to address his anxiety. Pt denies SI, HI, SIB, A/V hallucinations, paranoia, andreia/hypomania, other symptoms more suggestive of a bipolar presentation, and other specific psychiatric symptoms. Principal Diagnosis 1. Hypotension secondary to End stage Ischemic Cardiomyopathy 2. DESMOND 3. Dysphagia 4. Palliative Care SECONDARY DIAGNOSIS ON DISCHARGE 1. DM Type 2 Discharge Exam Constitutional + ill appearing and + cachectic; no acute distress Eyes PERRL, conjunctivae normal, anicteric sclerae ENMT external ear and nose normal, oropharynx normal Respiratory + labored breathing Auscultation: no rhonchi and no wheezes Cardiovascular Rate/Rhythm: regular rate and regular rhythm Vessels: normal peripheral pulses Extremities: + edema (+2 pitting BLE) Gastrointestinal (Abdomen) Percussion/Palpation: abdomen soft; abdomen nontender Discharge Data Allergies Allergy/AdvReac Type Severity Reaction Status Date / Time No Known Allergies Allergy Verified 06/20/18 20:54 Consultations 06/20/18 20:23 ED Decision to Admit Stat 06/20/18 22:34 Consult Cardiology Routine Consult Case Management - Discharge Planning Routine 06/24/18 13:14 Consult Palliative Care Routine 06/24/18 13:15 Consult Psychiatry Routine 06/24/18 17:45 Consult Urology Routine Ordered Studies 06/23/18 11:30 FL video swallow Routine 06/24/18 13:17 CT abd pelvis IV con only Urgent Hospital Course (1) Hypotension: SECONDARY TO END STAGE ISCHEMIC CARDIOMYOPATHY BP improved after addition of Midodrine - stable now No evidence of sepsis, or infection. -Per cardiology, end-stage cardiomyopathy. Recommended palliative care -Family meeting on 06/25/18- after medical optimization would like to take him home with hospice. Not to return to hospital. DNR/DNI -Roxanol 5 mg/ml q 3 hours PRN -Lorazepam 0.5 mg PO/SL q 3 hours PRN for anxiety -Appreciated palliative care inputs (2) Ischemic cardiomyopathy: Baseline severe ischemic cardiomyopathy with EF of 15 to 20% -Mx as above (3) Palliative care encounter: Multiple comorbidities as above. End-stage cardiomyopathy with hypotension at baseline Palliative medicine meeting 06/25- Family decided to go for home hospice (4) DESMOND (acute kidney injury): Acute renal failure, baseline chronic kidney disease stage III -Creatinine 1.7 increased from baseline 1.4 -due to severe ischemic cardiomyopathy (5) CKD (chronic kidney disease), stage III: -Creatinine 1.7, noted to be 1.4 on recent outpatient labs -Likely prerenal secondary to diuresis (6) Hyponatremia: -Likely diuretic induced (7) Dysphagia: Family reports patient has been complaining of difficulty in swallowing pills, food getting stuck, even having choking spell while drinking water. Speech swallow done: VFSS shows no overt aspiration, but patient started to retching /gagging with small amount of thin liquids - study was stopped as pt could not tolerate it. Non diagnostic study. Speech could not suggest diet recommendation - voiced concern for loss of appetite , wt loss 35 lb in past 5 months Not a candidate for EGD /colonoscopy -severe cardiomyopathy -increased risk for cardiac arrythmia /CHF /suddden cardiac during anesthesia and procedure CT abdomen pelvis : shows evidence of cystitis , bladder stone -no tumor or malignancy. Speech recommends : palliative care Pt should be allowed to eat any thing that he likes -Pureed diet.Pleasure feeds Aspiration precautions (8) Elevated lipase: -Lipase 1603, -> normalized -No reports of abdominal pain, nausea, vomiting -CT abdomen /pelvis shows no acute pathology (9) Abnormal chest x-ray: -CXR shows a small left pleural effusion CT abdomen/pelvis shows bilat pleural effusion -There is also question of a left basilar consolidation/pneumonia however given no reports of cough or sputum production, afebrile, no leukocytosis, normal procalcitonin, will not treat as pneumonia for now -Received IV lasix -further dose of diuretics kept on hold for acute renal failure /hypotesnon (10) Abnormal urinalysis: -Possible contaminant, patient denies urinary symptoms -Urine culture- Not significant (11) DM type 2 (diabetes mellitus, type 2): -Hgb A1c 6.2 05/2018 -Metformin recently discontinued -Utilize NovoLog per protocol while hospitalized (12) DVT prophylaxis: -SQ heparin CODE STATUS: d/w pt and family DNR/DNI aware of the poor prognosis Disposition: Home hospice today Total Time Total Time Spent Total Time Spent (In Minutes): 32 MINUTES Discharge Plan Discharge Items Patient Disposition: Hospice - Home Reason For Visit: CHF Discharge Diagnosis: 1. End stage Ischemic cardiomyopathy 2. Hospice care Discharge Goals: Decrease discomfort Activity: Resume your previous activity Activity Comment: as tolerated Non-emergency contact: Primary Care Provider Call non-emergency contact if: you have any medication questions Follow-up/Referrals: Hospice, Team [Other] Jodi Dejesus DO [Primary Care Provider] - Diet: Regular Diet Comment: Pleasure feeds as tolerated with aspiration precautions Addtl Provider Instructions: MEDICATION CHANGES: New medications: 1. Roxanol 5 mg/ml q 3 hours as needed for pain/sob 2. Lorazepam 0.5 mg sublingual q 3 hours as needed for anxiety 3. Midodrine 2.5 mg PO three times a day for blood pressure Follow up Hospice team Prescriptions: New lorazepam 0.5 mg Tablet 0.5 mg PO Q3H PRN (Reason: anxiety) 30 Days Qty: 30 RF: 0 midodrine 2.5 mg Tablet 2.5 mg PO TID@0800,1200,1700 30 Days Qty: 90 RF: 0 escitalopram oxalate 10 mg Tablet 10 mg PO QAM 30 Days Qty: 30 RF: 0 morphine concentrate 100 mg/5 mL (20 mg/mL) solution 5 mg PO Q3H PRN (Reason: pain and Shortness of breath) 15 Days Qty: 30 RF: 0 polyethylene glycol 3350 [Miralax] 17 gram Powder In Packet 17 g PO DAILY 30 Days Qty: 15 RF: 0 Continued trazodone 50 mg tablet 50 mg PO HS RF: 0 multivitamin Tablet 1 tab PO QAM RF: 0 Changed metoprolol succinate 25 mg tablet extended release 24 hr 12.5 mg PO QAM 30 Days Qty: 15 RF: 0 Discontinued furosemide 40 mg tablet 40 mg PO DAILY RF: 0 omeprazole 20 mg capsule,delayed release(DR/EC) 20 mg PO QAM RF: 0 aspirin 81 mg Tablet,Delayed Release (Dr/Ec) 81 mg PO QAM RF: 0 Ocuvite Adult 50 Plus 250-5-1 mg Capsule 1 cap PO QAM RF: 0 magnesium oxide 400 mg magnesium Tablet 400 mg PO QAM RF: 0 Probiotic and Acidophilus 300-250 million cell-mg Capsule 1 cap PO DAILY RF: 0 Stand-Alone Forms: [facility] Discharge Orders: Discharge Order (Routine); Ordered 06/27/18 Ordered By: Jamila Golden Admission Data Admit Date/Time: 06/20/18 21:37 Attending Provider: Jamila Golden Admit Provider: Franky Gomez Primary Care Provider: Jodi Dejesus Other Providers: Jarod Siegel ; Rita Hwang ; Vicenta Dang ; Franklin Tristan Service: Medical Other Interventions: Discharge Summary Assessment (RN) Last Done: 06/27/18 13:44 DC Date/Time DO NOT enter until pt leaves facility: 06/27/18 14:38
== END 2018-06-27 14:38 | disposition hospice, home (50) | DRG 312 ==
LOC: ED 18:48 → 2E 21:37 → SUATTDRO 21:37 → 2E 22:01 → 4E 06-24 14:17